=== PATIENT | female | born 1970 | race Caucasian/White ===

== ENCOUNTER 2023-10-16 13:15 | Outpatient (AMB) | payer MEDICARE, MEDICAID, SELFPAY ==
[2023-10-16 13:46] VITALS: PULSE 73; O2SAT 92; BMI 54.9
--- NOTE | 2023-10-16 13:46 | MHC.OFFVIS ---
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 The patient is a 53 year woman with a history of GREGORIA on CPAPmpresenting with dyspnea symptoms and abnormal CT scan of the chest. Apparently patient was in her usual state health until back in the summer. she was noticing that she was getting more shortness of breath while she was swimming. Therefore she went to her provider and she did have an evaluation for her underlying symptoms. There significant for her where she could her perform the activities of daily living. She did have a chest x-ray and subsequently a CT scan to follow-up the abnormal findings. She was found to have a an area on the right lower lobe of airspace disease and also other areas of ground-glass opacities. Nodular densities also the ground-glass in nature. She was treated for pneumonia and she ultimately had a repeat CT scan more recently to follow-up the resolution of the process. Clinically the patient has been doing better. His back at the pool. She is at her baseline but she is feeling little better. She did have repeat CT scan more recently we personally reviewed. It appears some of the right lower lobe airspace disease changes have improved to some degree but not completely gone. The ground-glass opacities are still present. We did talk about different etiologies. The patient does have a history of gastric sleeve and hiatal hernia. Ultimately the hiatal hernia did appear again on her most recent CT scan suggesting some recurrence. We did talk about reflux related aspiration pneumonitis that can resulting changes primarily in the right lower lobe area. She remembers 1 day which she did aspirate specially over the summer while wearing her CPAP primarily because of too much compensation. We did talk about how to maneuver that how decrease that risk. The patient also needs to be sleeping elevated. She has a positional bed but she sleeps on her side. We talked about getting risers of bricks to elevate the head of the bed. In the meantime she also needs to follow closely reflux diet. I did offer to do a barium swallow which she would like to hold off on that right now. Therefore will do additional evaluation for the findings of pneumonitis. In addition to that the patient will undergo pulmonary function studies. Since the patient is clinically doing better will continue to watch her closely. Will follow-up after she undergoes the blood work in the PFTs. [facility] Medical History (Updated 10/16/23 @ 20:44 by Jeff Saravia MD) GREGORIA on CPAP Hiatal hernia Pulmonary nodule Pneumonitis Social History (Updated 10/16/23 @ 13:56 by CORNELIUS Lazcano) Patient Tobacco Use Status: Never used Tobacco Review of Systems Const Denies fever(s) Eyes Reports no additional complaints ENT Reports nasal congestion Card Denies chest pain Resp Reports cough and Denies wheezing GI Reports dyspepsia and Reports heartburn Skin/Breast Reports system reviewed and no additional complaints, except as documented Neuro Reports no additional complaints Elias/Lymph Denies lymphadenopathy Aller/Immun Denies wheezing Physical Exam Vital Signs: Last Vital Signs Pulse 73 10/16/23 13:46 Pulse Ox 92 10/16/23 13:46 Oxygen Delivery Method Room Air 10/16/23 13:46 BMI result Body Mass Index 54.9 Const General: comfortable HEENT Head: Yes normocephalic Neck Neck: Yes supple Chest Chest palpation & inspection: normal inspection of the chest Resp Effort & Inspection: normal respiratory effort Auscultation: diminished lung sounds Cardio Heart sounds: S1 normal heart sound present and S2 normal heart sound present GI Palpation (GI): Soft to palpation Skin General skin exam: no rashes or lesions noted Extrem General: No clubbing Results Reviewed Results Reviewed: Personally reviewed CT scan from March and also more recent. Demonstrating areas of ground-glass opacities pneumonitis in the right lower lobe and also in the right mid area. Less degree in the right upper lobe. Pulmonary nodules noted area of airspace disease appears to be little better. Moderate-sized hiatal hernia. Assessment & Plan Assessment & Plan (1) Pulmonary nodule: Code(s): R91.1 - Solitary pulmonary nodule (2) Pneumonitis: Code(s): J98.4 - Other disorders of lung (3) Hiatal hernia: Code(s): K44.9 - Diaphragmatic hernia without obstruction or gangrene (4) GREGORIA on CPAP: Code(s): G47.33 - Obstructive sleep apnea (adult) (pediatric) Plan Bloodwork PFTs reflux diet consider barium swallow sleep with HOB elevated continue APAP, decrease temp/humidity Chlorhexadine MW x 14 days F/U 2-3 months Orders: Orders Immunoglobulins,IgG IgA IgM Today J98.4 - Other disorders of lung, R91.1 - Solitary pulmonary nodule Hypersensitive Pneumonitis Prf Today J98.4 - Other disorders of lung, R91.1 - Solitary pulmonary nodule, R91.8 - Other nonspecific abnormal finding of lung field Cyclic Citrullinated Peptide Today J98.4 - Other disorders of lung, R91.1 - Solitary pulmonary nodule PFT pulmonary function test 2 Months J98.4 - Other disorders of lung Complete Blood Count Auto Diff Today J98.4 - Other disorders of lung, R91.1 - Solitary pulmonary nodule Immunoglobulin G Subclasses Today J98.4 - Other disorders of lung, R91.1 - Solitary pulmonary nodule ASHLEIGH Reflex Titer and Pattern Today J98.4 - Other disorders of lung, R91.1 - Solitary pulmonary nodule Erythrocyte Sedimentation Rate Today J98.4 - Other disorders of lung, R91.1 - Solitary pulmonary nodule Sjogren's Antibodies Today J98.4 - Other disorders of lung, R91.1 - Solitary pulmonary nodule Medications: New chlorhexidine gluconate 0.12% 15 mL buccal BID 420 mL 0RF 14 days Coding Level of Care Code Est Pt Level 4 (04449) Diagnoses Pulmonary nodule R91.1 Pneumonitis J98.4 Hiatal hernia K44.9 GREGORIA on CPAP G47.33 Time Spent (min) 38
== END 2023-10-16 14:25 | disposition home or self-care (01) ==
PROVIDERS: PCP Internal Medicine; Referring Provider Internal Medicine; Visit Provider Hospitalist
DX: R91.1 Solitary pulmonary nodule (principal); J98.4 Other disorders of lung; K44.9 Diaphragmatic hernia without obstruction or gangrene; G47.33 Obstructive sleep apnea (adult) (pediatric)
CPT/HCPCS: 99214

== ENCOUNTER → 2023-10-16 13:15 | Outpatient (BNVA) | payer MEDICARE, MEDICAID, SELFPAY | PROVIDERS: PCP Internal Medicine; Referring Provider Internal Medicine; Visit Provider Hospitalist | DX: R91.1 Solitary pulmonary nodule (principal); J98.4 Other disorders of lung; G47.33 Obstructive sleep apnea (adult) (pediatric); K44.9 Diaphragmatic hernia without obstruction or gangrene | CPT/HCPCS: 99212 ==

== ENCOUNTER 2023-12-13 14:24 | Outpatient (REF) | payer MEDICARE, MEDICAID, SELFPAY ==
[2023-12-13 09:19] VITALS: PULSE 78; RESP 16; O2SAT 95
--- NOTE | 2023-12-13 16:01 | PFT_ITS ---
Indication: GREGORIA Spirometry [FEV1 to FVC 85%; FEV1 2.33 L; FVC 2.73 L. no significant response to bronchodilators noted. Maximum voluntary ventilation 69% predicted] Lung Volumes [Total lung capacity 78% predicted; expiratory reserve volume 25% predicted] Diffusion Capacity [DLCO 109% predicted] Comparison [None] Interpretation [No obstructive ventilatory defect. No significant response to bronchodilators noted. This is a [id number] decrease in the maximum voluntary ventilation which could be secondary to deconditioning although can not rule out neuromuscular conditions. The patient does have a restrictive ventilatory defect consistent with mild restrictive lung disease. In part due to an elevated BMI with a significant decrease in the expiratory reserve volume. Diffusing capacity is within normal limits. Clinical correlation warranted.] MTDD
== END 2023-12-13 14:25 | disposition home or self-care (01) ==
LOC: HO.RESP 14:24
PROVIDERS: PCP Internal Medicine; Visit Provider Hospitalist
DX: J98.4 Other disorders of lung (principal)
CPT/HCPCS: 94010; 94640; 94727; 94729

== ENCOUNTER → 2023-12-13 16:01 | Outpatient (BNV) | payer MEDICARE, MEDICAID, SELFPAY | PROVIDERS: PCP Internal Medicine; Visit Provider Hospitalist | DX: J98.4 Other disorders of lung (principal) | CPT/HCPCS: 94060; 94727; 94729 ==

== ENCOUNTER 2023-12-27 14:07 | Outpatient (AMB) | payer MEDICARE, MEDICAID, SELFPAY ==
--- NOTE | 2023-12-27 14:13 | A.OFFVIS_ITS ---
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 Apparently patient was in her usual state health until back in the summer. she was noticing that she was getting more shortness of breath while she was swimming. Therefore she went to her provider and she did have an evaluation for her underlying symptoms. There significant for her where she could her perform the activities of daily living. She did have a chest x-ray and subsequently a CT scan to follow-up the abnormal findings. She was found to have a an area on the right lower lobe of airspace disease and also other areas of ground-glass opacities. Nodular densities also the ground-glass in nature. She was treated for pneumonia and she ultimately had a repeat CT scan more recently to follow-up the resolution of the process. Clinically the patient has been doing better. His back at the pool. She is at her baseline but she is feeling little better. She did have repeat CT scan more recently we personally reviewed. It appears some of the right lower lobe airspace disease changes have improved to some degree but not completely gone. The ground-glass opacities are still present. We did talk about different etiologies. The patient does have a history of gastric sleeve and hiatal hernia. Ultimately the hiatal hernia did appear again on her most recent CT scan suggesting some recurrence. We did talk about reflux related aspiration pneumonitis that can resulting changes primarily in the right lower lobe area. She remembers 1 day which she did aspirate specially over the summer while wearing her CPAP primarily because of too much compensation. We did talk about how to maneuver that how decrease that risk. The patient also needs to be sleeping elevated. She has a positional bed but she sleeps on her side. We talked about getting risers of bricks to elevate the head of the bed. In the meantime she also needs to follow closely reflux diet. I did offer to do a barium swallow which she would like to hold off on that right now. Therefore will do additional evaluation for the findings of pneumonitis. In addition to that the patient will undergo pulmonary function studies. Since the patient is clinically doing better will continue to watch her closely. Will follow-up after she undergoes the blood work in the PFTs. 12/27/2023 the patient is here for pulmonary follow-up visit. The patient overall has been doing well. Denies any significant cough or shortness of breath. She is back to her baseline. She is starting to exercise more regularly. She is going to go back to the pulse soon. In the meantime she did have blood work done but was done at [facility] and now through [facility]. I do not have the results and we have to requesting. She also had pulmonary function studies that we personally reviewed. She does have a mild restrictive ventilatory defect likely secondary to her body habitus. Otherwise normal. The patient did have a CT scan back in the beginning of the year. She did have evidence of ground- glass opacities primarily in the right upper lobe. Will go ahead and repeat the CT scan in 6 months' time to make sure that there is resolution of the process. Otherwise patient is without any other complaints. Will follow-up in 6-[address] scan. If she has any issues prior to that she will call for an earlier assessment. COUNTS INCLUDE 234 BEDS AT THE [facility] Medical History (Updated 10/16/23 @ 20:44 by Jeff Saravia MD) GREGORIA on CPAP Hiatal hernia Pulmonary nodule Pneumonitis Social History (Updated 10/16/23 @ 13:56 by CORNELIUS Lazcano) Patient Tobacco Use Status: Never used Tobacco Review of Systems Const Denies fever(s) Eyes Reports no additional complaints ENT Reports nasal congestion Card Denies chest pain Resp Reports cough and Denies wheezing GI Reports dyspepsia and Reports heartburn Skin/Breast Reports system reviewed and no additional complaints, except as documented Neuro Reports no additional complaints Elias/Lymph Denies lymphadenopathy Aller/Immun Denies wheezing Physical Exam Vital Signs: Last Vital Signs Pulse 89 12/27/23 14:16 Pulse Ox 95 12/27/23 14:16 Oxygen Delivery Method Room Air 12/27/23 14:16 BMI result Body Mass Index 53.9 Const General: comfortable HEENT Head: Yes normocephalic Neck Neck: Yes supple Chest Chest palpation & inspection: normal inspection of the chest Resp Effort & Inspection: normal respiratory effort Auscultation: diminished lung sounds Cardio Heart sounds: S1 normal heart sound present and S2 normal heart sound present GI Palpation (GI): Soft to palpation Skin General skin exam: no rashes or lesions noted Extrem General: No clubbing Assessment & Plan Assessment & Plan (1) Pulmonary nodule: Code(s): R91.1 - Solitary pulmonary nodule Category: Medical (2) Pneumonitis: Code(s): J98.4 - Other disorders of lung Category: Medical (3) Hiatal hernia: Code(s): K44.9 - Diaphragmatic hernia without obstruction or gangrene Category: Medical (4) GREGORIA on CPAP: Code(s): G47.33 - Obstructive sleep apnea (adult) (pediatric) Category: Medical Plan reflux diet sleep with HOB elevated continue APAP CT chest 6 months Need to review bloodwork ([facility]) F/U 6-8 months Orders: Orders CT chest wo IV con 7 Months J98.4 - Other disorders of lung, R91.1 - Solitary pulmonary nodule Coding Level of Care Code Est Pt Level 4 (98417) Diagnoses Pulmonary nodule R91.1 Pneumonitis J98.4 Hiatal hernia K44.9 GREGORIA on CPAP G47.33 Time Spent (min) 17
[2023-12-27 14:16] VITALS: PULSE 89; O2SAT 95; BMI 53.9
== END 2023-12-27 14:34 | disposition home or self-care (01) ==
PROVIDERS: PCP Internal Medicine; Visit Provider Hospitalist
DX: R91.1 Solitary pulmonary nodule (principal); J98.4 Other disorders of lung; K44.9 Diaphragmatic hernia without obstruction or gangrene; G47.33 Obstructive sleep apnea (adult) (pediatric)
CPT/HCPCS: 99214

== ENCOUNTER → 2023-12-27 14:07 | Outpatient (BNVA) | payer MEDICARE, MEDICAID, SELFPAY | PROVIDERS: PCP Internal Medicine; Visit Provider Hospitalist | DX: J98.4 Other disorders of lung (principal); R91.1 Solitary pulmonary nodule; K44.9 Diaphragmatic hernia without obstruction or gangrene; G47.33 Obstructive sleep apnea (adult) (pediatric) | CPT/HCPCS: 99212 ==

== ENCOUNTER 2024-07-21 16:03 | Outpatient (REF) | payer MEDICARE, MEDICAID, SELFPAY | END 2024-07-21 16:04 | disposition home or self-care (01) | LOC: HO.CT 16:03 | PROVIDERS: PCP Internal Medicine; Visit Provider Hospitalist | DX: J98.4 Other disorders of lung (principal); R91.1 Solitary pulmonary nodule | CPT/HCPCS: 71250 ==

== ENCOUNTER → 2024-07-21 16:05 | Outpatient (BNV) | payer MEDICARE, MEDICAID, SELFPAY | PROVIDERS: PCP Internal Medicine; Visit Provider Radiology Diagnostic Radiology | DX: R91.1 Solitary pulmonary nodule (principal); J98.4 Other disorders of lung | CPT/HCPCS: 71250 ==

== ENCOUNTER → 2024-09-23 13:46 | Outpatient (AMB) | payer MEDICARE, MEDICAID, SELFPAY ==
--- NOTE | 2024-09-23 13:50 | MHC.OFFVIS ---
Vital Signs 09/23/24 13:51 Height 5 ft 5 in BMI Reason not done Patient refused/unable BP 128/74 Blood Pressure Location Lt radial Position Sitting Pulse 76 Pulse Source Pulse Oximeter Pulse Oximetry (%) 98 Oxygen Delivery Method Room Air Intake Visit Reasons: abnormal ct Allergies gabapentin Adverse Reaction (Severe, Verified 09/23/24 13:54) Blurry Vision metformin Adverse Reaction (Severe, Verified 09/23/24 13:54) Unknown HPI Comments Details: The patient is a 54 year woman with a history of GREGORIA on CPAPmpresenting with dyspnea symptoms and abnormal CT scan of the chest. Apparently patient was in her usual state health until back in the summer. she was noticing that she was getting more shortness of breath while she was swimming. Therefore she went to her provider and she did have an evaluation for her underlying symptoms. There significant for her where she could her perform the activities of daily living. She did have a chest x-ray and subsequently a CT scan to follow-up the abnormal findings. She was found to have a an area on the right lower lobe of airspace disease and also other areas of ground-glass opacities. Nodular densities also the ground-glass in nature. She was treated for pneumonia and she ultimately had a repeat CT scan more recently to follow-up the resolution of the process. Clinically the patient has been doing better. His back at the pool. She is at her baseline but she is feeling little better. She did have repeat CT scan more recently we personally reviewed. It appears some of the right lower lobe airspace disease changes have improved to some degree but not completely gone. The ground-glass opacities are still present. We did talk about different etiologies. The patient does have a history of gastric sleeve and hiatal hernia. Ultimately the hiatal hernia did appear again on her most recent CT scan suggesting some recurrence. We did talk about reflux related aspiration pneumonitis that can resulting changes primarily in the right lower lobe area. She remembers 1 day which she did aspirate specially over the summer while wearing her CPAP primarily because of too much compensation. We did talk about how to maneuver that how decrease that risk. The patient also needs to be sleeping elevated. She has a positional bed but she sleeps on her side. We talked about getting risers of bricks to elevate the head of the bed. In the meantime she also needs to follow closely reflux diet. I did offer to do a barium swallow which she would like to hold off on that right now. Therefore will do additional evaluation for the findings of pneumonitis. In addition to that the patient will undergo pulmonary function studies. Since the patient is clinically doing better will continue to watch her closely. Will follow-up after she undergoes the blood work in the PFTs. 12/27/2023 the patient is here for pulmonary follow-up visit. The patient overall has been doing well. Denies any significant cough or shortness of breath. She is back to her baseline. She is starting to exercise more regularly. She is going to go back to the pulse soon. In the meantime she did have blood work done but was done at [facility] and now through [facility]. I do not have the results and we have to requesting. She also had pulmonary function studies that we personally reviewed. She does have a mild restrictive ventilatory defect likely secondary to her body habitus. Otherwise normal. The patient did have a CT scan back in the beginning of the year. She did have evidence of ground-glass opacities primarily in the right upper lobe. Will go ahead and repeat the CT scan in 6 months' time to make sure that there is resolution of the process. Otherwise patient is without any other complaints. Will follow-up in 6-[address] scan. If she has any issues prior to that she will call for an earlier assessment. 09/23/2024 the patient is here for a pulmonary follow-up visit. The patient overall is doing well she is responding well to the respiratory therapy. Asthma symptoms have been stable. She did have a CT scan of the chest sometime in 08/08/2024 which I personally reviewed with her. I also compared to her previous CT scan from 2022. It appears that she has a 2 cm upper mediastinal lymph node. It was their present on her CT scan from 06/11 and still present now. Therefore, will continue to follow this abnormal finding. The patient does not have any unintentional weight loss. She has weight loss but is because he has been trying to do so. She has not had any issues with poor appetite or night sweats or any other constitutional symptoms that will warrant any further concerns. If she does develop any constitutional symptoms the patient will call the office for an earlier evaluation otherwise will just plan to repeat the CT scan in a year's time. She will continue with the current respiratory therapy and sleep therapy. She has any issues prior to her next visit she will call for an earlier assessment. [facility] Medical History (Updated 09/23/24 @ 21:07 by Jeff Saravia MD) Lymphadenopathy, mediastinal GREGORIA on CPAP Hiatal hernia Pulmonary nodule Pneumonitis Social History Patient Tobacco Use Status: Never used Tobacco Review of Systems Const Denies fever(s), Denies night sweats, Denies poor appetite and Reports weight loss Eyes Reports no additional complaints ENT Reports nasal congestion Card Denies chest pain Resp Reports cough and Denies wheezing GI Reports dyspepsia and Reports heartburn Skin/Breast Reports system reviewed and no additional complaints, except as documented Neuro Reports no additional complaints Elias/Lymph Denies lymphadenopathy Aller/Immun Denies wheezing Physical Exam Vital Signs: Last Vital Signs Pulse 76 09/23/24 13:51 BP 128/74 09/23/24 13:51 Pulse Ox 98 09/23/24 13:51 Oxygen Delivery Method Room Air 09/23/24 13:51 Const General: comfortable HEENT Head: Yes normocephalic Neck Neck: Yes supple Chest Chest palpation & inspection: normal inspection of the chest Resp Effort & Inspection: normal respiratory effort Auscultation: diminished lung sounds Cardio Heart sounds: S1 normal heart sound present and S2 normal heart sound present GI Palpation (GI): Soft to palpation Skin General skin exam: no rashes or lesions noted Extrem General: No clubbing Results Reviewed Results Reviewed: [address] [address] [address] Scan Report Signed Patient: Margi Ocasio MR#: [id number] : 1970 Acct:[id number] Age/Sex: 54 / F ADM Date: 07/21/24 Loc: HO.CT Attending Dr: Jeff Saravia MD Ordering Physician: Jeff Saravia MD Date of Service: 07/21/24 Procedure(s): CT chest wo IV con Accession Number(s): [id number] cc: Faustina Aguila MD; Jeff Saravia MD~ Report Number: [id number]: Total DLP = 594.00 mGy-cm EXAMINATION: CT CHEST WITHOUT IV CONTRAST INDICATION: J98.4 - Other disorders of lung. Pulmonary nodule. COMPARISON: There are no prior studies available for comparison. TECHNIQUE: Helical CT scan of the chest was performed without intravenous contrast. Coronal and sagittal reformatted images were generated and reviewed. This CT exam was performed with one or more of the following dose reduction techniques: automated exposure control, adjustment of the mA and/or kV according to patient size, use of iterative reconstruction technique. DLP: 594 mGy-cm CHEST: THYROID: The thyroid is unremarkable. LUNGS:There are punctate nodules in the right upper lobe (series 5, image 139), and in the left upper lobe (series 5, image 189). No additional pulmonary nodules are identified. MEDIASTINUM: There is a 2.2 cm superior mediastinal node on the right. SVITLANA: Evaluation of the hilar regions is limited by lack of intravenous contrast material. CARDIOVASCULATURE: The heart is normal in size. There is no pericardial effusion. The thoracic aorta is normal in caliber. DEGREE OF CORONARY CALCIFICATION: none PLEURA: There is no pleural effusion. No pneumothorax. MAIN AIRWAYS: The mainstem bronchi and proximal branches are patent. AXILLA: There is no axillary lymphadenopathy. BONES AND SOFT TISSUES: Unremarkable UPPER ABDOMEN: The visualized portions of the liver, spleen, and adrenals have an unremarkable appearance. There is a small to moderate hiatal hernia. Postoperative changes are noted involving the stomach. CT/CT chest wo IV con IMPRESSION: 1. Punctate bilateral upper lobe pulmonary nodules. Comparison with prior outside studies is recommended. 2. 2.2 cm superior mediastinal lymph node. Please note that while this study was performed on 07/21/2024, it is only now submitted for interpretation, on 09/05/2024. Electronically signed by: Can Murillo MD 09/05/2024 02:24 PM [facility] Dictated By: Can Murillo MD Signed By: <Electronically signed by Can Murillo MD in OV> 09/05/24 1424 DD/ 1639 TD/TT: 07/21/24 1649 Manager Small Business: Assessment & Plan Assessment & Plan (1) Pulmonary nodule: Code(s): R91.1 - Solitary pulmonary nodule Category: Medical (2) Pneumonitis: Comment: resolved Code(s): J98.4 - Other disorders of lung Category: Medical (3) Hiatal hernia: Code(s): K44.9 - Diaphragmatic hernia without obstruction or gangrene Category: Medical (4) GREGORIA on CPAP: Code(s): G47.33 - Obstructive sleep apnea (adult) (pediatric) Category: Medical (5) Lymphadenopathy, mediastinal: Code(s): R59.0 - Localized enlarged lymph nodes Category: Medical Plan reflux diet sleep with HOB elevated continue APAP CT chest 12 months Need to review bloodwork ([facility]) F/U 12 months Orders: Orders CT chest wo IV con 1 Year R59.0 - Localized enlarged lymph nodes, R91.1 - Solitary pulmonary nodule Coding Level of Care Code Est Pt Level 4 (97941) Diagnoses Pulmonary nodule R91.1 Pneumonitis J98.4 Hiatal hernia K44.9 GREGORIA on CPAP G47.33 Lymphadenopathy, mediastinal R59.0 Time Spent (min) 17
[2024-09-23 13:51] VITALS: BP 128/74; PULSE 76; O2SAT 98
--- OUTSIDE RECORDS SUMMARY | 2024-09-23 13:55 | XMS_ITS | Clinical Summary ---
Author Organization [facility] Address [address] [place] [address] Care Team Providers Care Keypunch Operators Supervisor Name Role Phone Faustina Aguila MD Primary Care Provider Allergies Active Allergy Reactions Criticality Noted Date Comments Gabapentin 10/18/2017 Medications Medication Sig Dispensed Refills Start Date End Date Status insulin aspart (NovoLOG) injection 100 units/mL Inject under the skin 3 (three) times a day with meals. 0 Active Levothyroxine Sodium (SYNTHROID PO) Take 0.2 mg by mouth daily. 0 Active metFORMIN (GLUCOPHAGE) tablet 1000 mg Take 1,000 mg by mouth 2 (two) times a day with meals. 0 Active Canagliflozin (INVOKANA) 300 MG TABS Take by mouth. 0 Active liraglutide (VICTOZA) injection 18 mg/3 mL Inject under the skin. 0 Active pregabalin (LYRICA) capsule 150 mg Take 150 mg by mouth every morning. 0 Active pregabalin (LYRICA) 300 MG capsule Take 300 mg by mouth every night at bedtime. 0 Active cyclobenzaprine (FLEXERIL) 10 MG tablet Take 10 mg by mouth 3 (three) times a day as needed for muscle spasms. 0 Active oxyCODONE (ROXICODONE) 15 MG immediate release tablet Take 15 mg by mouth every 4 (four) hours as needed for pain. 0 Active Levocetirizine Dihydrochloride (XYZAL PO) Take 10 mg by mouth daily. 0 Active Bepotastine Besilate (BEPREVE OP) Apply to eye. 0 Active furosemide (LASIX) 40 MG tablet Take 40 mg by mouth daily. 0 Active simvastatin (ZOCOR) tablet 20 mg Take 20 mg by mouth every night at bedtime. 0 Active losartan (COZAAR) tablet 25 mg Take 25 mg by mouth daily. 0 Active clotrimazole (LOTRIMIN) 1 % cream Apply topically 2 (two) times a day. 0 Active SUMAtriptan Succinate (IMITREX PO) Take 100 mg by mouth as needed. 0 Active Esomeprazole Magnesium (NEXIUM PO) Take 40 mg by mouth 2 (two) times a day. 0 Active Lurasidone HCl (LATUDA) 120 MG TABS Take by mouth. 0 Active BuPROPion HCl (WELLBUTRIN PO) Take 450 mg by mouth daily. 0 Active Methylphenidate HCl (RITALIN PO) Take 20 mg by mouth 2 (two) times a day. 0 Active Ramelteon (ROZEREM PO) Take by mouth. 0 Active betamethasone dipropionate (DIPROSONE) 0.05 % cream Apply topically 2 (two) times a day. 0 Active vitamin C (ASCORBIC ACID) 250 MG tablet Take 250 mg by mouth daily. 0 Active linaclotide (LINZESS) 145 MCG CAPS Take 145 mcg by mouth every morning before breakfast. 0 Active B Complex Vitamins (B COMPLEX 1 PO) Take by mouth. 0 Active IRON, FERROUS SULFATE, PO Take by mouth. 0 Active rOPINIRole (REQUIP) 1 MG tablet Take 1 mg by mouth 3 (three) times a day. 0 Active Empagliflozin (Jardiance) 25 MG TABS Take by mouth. 0 Active Semaglutide, 1 MG/DOSE, (Ozempic, 1 MG/DOSE,) 2 MG/1.5ML SOPN Inject under the skin. 0 Active rosuvastatin (CRESTOR) tablet 10 mg Take 10 mg by mouth daily. 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 10/19/2017 Type 2 diabetes mellitus wit h hyperosmolarity without coma, with long-term current use of insulin 10/19/2017 Acquired hypothyroidism 10/19/2017 Spinal stenosis 10/19/2017 Primary osteoarthritis involving multiple joints 10/19/2017 Gastroesophageal reflux disease 10/19/2017 Family History Medical History Relation Name Comments Diabetes Brother Bebeto Diabetes Father Can Lymphoma Maternal Cousin Tatiana Rectal cancer Maternal Grandfather Breast cancer Maternal Grandmother Diabetes Mother Glenna Stroke Mother Glenna Relation Name Status Comments Brother Bebeto Alive Father Can Alive Maternal Cousin Tatiana Alive non hodgkin Maternal Grandfather Maternal Grandmother Mother Glenna Alive Social History Tobacco Use Types Packs/Day Years Used Date Smoking Tobacco: Never Smokeless Tobacco: Never Alcohol Use Standard Drinks/Week Comments No 0 (1 standard drink = 0.6 oz pur e alcohol) Sex and Gender Information Value Date Recorded Sex Assigned at Not on file Gender Identity Not on file Sexual Orientation Not on file Last Filed Vital Signs Vital Sign Reading Time Taken Comments Blood Pressure 109/49 03/16/2021 2:14 PM EDT Pulse 82 03/16/2021 2:14 PM EDT Temperature 36.9 ??C (98.4 ??F) 03/16/2021 2:14 PM ED T Respiratory Rate - - Oxygen Saturation 98% 03/16/2021 2:14 PM EDT Inhaled Oxygen Concentration - - Weight 153.8 kg (339 lb) 03/16/2021 2:14 PM EDT Height 165.1 cm (5' 5 ) 03/16/2021 2:14 PM EDT Body Mass Index 56.41 03/16/2021 2:14 PM EDT Plan of Treatment Health Maintenance Due Date Last Done Comments Hepatitis B Vaccines (1 of 3 - 3-dose series) 1971 Hepatitis C Screening 1971 COVID-19 Vaccine (#1) 01/12/1976 Pneumococcal Vaccine (1 of 2 - PCV) 1977 Depression Screening 1983 Preventative Health Evaluation 1989 DTap / Tdap / Td (1 - Tdap) 1990 Shingrix-Zoster Vaccine (1 of 2) 1990 Cervical Cancer Screening (P ap Smear) 01/12/1992 Colon Cancer Screening (Colonoscopy) 01/12/2016 Breast Cancer Screening (Mammogram) 2021 Influenza Vaccine (#1) 2024 RSV Ped < 20 months Aged Out No longe r eligible based on patient's age to complete this topic Care Teams Keypunch Operators Supervisor Relationship Specialty Start Date End Date Faustina Aguila MD [address] [place] [address] PCP - General Internal Medicine 03/16/21
--- OUTSIDE RECORDS SUMMARY | 2024-09-23 13:55 | XMS_ITS | Clinical Summary ---
Author Organization [facility] Address [address] [place] [address] Phone Care Team Providers Care Prop Maker Name Role Phone Faustina Aguila MD Primary Care Provider Allergies Active Allergy Reactions Criticality Noted Date Comments Gabapentin 10/18/2017 Metformin 08/02/2023 Medication induced Hepatitis A Medications Medication Sig Dispensed Refills Start Date End Date Status sucralfate (CARAFATE) 1 gram tabletIndications:Gas troesophageal reflux disease without esophagitis Take 1 tablet (1 g total) by mouth 3 (three) times a day. Take 1 hour before meals and at bedtime 270 each 07/28/2024 Active pantoprazole (PROTONIX) 40 mg EC tabletIndications:Gas troesophageal reflux disease without esophagitis Take 1 tablet (40 mg total) by mouth 2 (two) times a day. Do not crush, chew, or split. 60 each 5 08/28/2024 5 Active levothyroxine (SYNTHROID, LEVOTHROID) 200 mcg tablet Take 1 Tablet by mouth daily. Every 6 days Active empagliflozin (Jardiance) 25 mg tablet Take 1 tablet (25 mg total) by mouth 1 (one) time each day. Active ropinirole HCl (ROPINIROLE ORAL) Take by mouth. Take 2 1-3 hours before bedtime Active tiZANidine (ZANAFLEX) 4 mg tablet Take 1 tablet (4 mg total) by mouth 3 (three) times a day. Active celecoxib (CeleBREX) 200 mg capsule Take 1 capsule (200 mg total) by mouth 2 (two) times a day. Active oxyCODONE (OxyCONTIN) 15 mg 12 hr abuse-deterrent tablet Take 1 tablet (15 mg total) by mouth every 12 (twelve) hours. Max Daily Amount: 30 mg Active levocetirizine dihydrochloride (XYZAL ORAL) Take 10 mg by mouth 1 (one) time each day. Active losartan (COZAAR) 25 mg tablet Take 1 tablet (25 mg total) by mouth 1 (one) time each day. Active rosuvastatin (CRESTOR) 5 mg tablet Take 1 tablet (5 mg total) by mouth 1 (one) time each day. Active oxymetazoline HCl (OXYMETAZOLINE NASL) Administer into affected nostril(s). Active famotidine (PEPCID) 20 mg tablet Take 1 tablet (20 mg total) by mouth as needed. Active ondansetron HCl (ZOFRAN ORAL) Take by mouth. Every 4 hours prn Active plecanatide (Trulance) 3 mg tablet Take by mouth 1 (one) time each day. Active lurasidone (Latuda) 120 mg tablet Take 1 tablet (120 mg total) by mouth at bedtime. Active ramelteon (ROZEREM ORAL) Take 2 tablets by mouth at bedtime. Take 2 Tablets by mouth at bedtime. ROZERM Active bupropion HCl (WELLBUTRIN XL ORAL) Take 450 mg by mouth 1 (one) time each day. Active dupilumab (Dupixent Pen) 300 mg/2 mL pen Inject into the skin once a week. On Mondays Active halobetasol (ULTRAVATE) 0.05 % cream Apply topically 2 (two) times a day. Active ciclopirox (LOPROX) 0.77 % gel Apply topically. Active cholecalciferol (VITAMIN D-3) 125 mcg (5,000 unit) capsule Take 1 capsule (5,000 Units total) by mouth 1 (one) time each day. 02/21/2018 Active esomeprazole magnesium (NEXIUM ORAL) Take 40 mg by mouth 2 (two) times a day. Active insulin aspart (NovoLOG U-100 Insulin aspart) 100 unit/mL injection Inject 100 Units under the skin 3 (three) times a day before meals. Active multivitamin (MULTIPLE VITAMINS ORAL) Take 10 mg by mouth daily. Bariatric Active levothyroxine sodium (SYNTHROID ORAL) Take 100 mcg by mouth 1 (one) time each day. Active linaCLOtide (LINZESS) 145 mcg capsule Take 1,000 capsules (145,000 mcg total) by mouth 1 (one) time each day. Active oxyCODONE (ROXICODONE) 15 mg immediate release tablet Take 0.5 Tablets by mouth every 4 hours as needed. Take 1/2 tab every 4 hours orn for break through pain Active pregabalin (LYRICA) 300 mg capsule Take by mouth. Take 150 mg in the am and 300 mg in the pm Active methylphenidate (RITALIN) 20 mg tablet Take 1 tablet (20 mg total) by mouth 2 (two) times a day. Max Daily Amount: 40 mg Active dicyclomine (BENTYL) 20 mg tabletIndications:Irr itable bowel syndrome, unspecified type Take 1 tablet (20 mg total) by mouth 4 (four) times a day. 360 each 3 09/15/2024 6 Active pantoprazole (PROTONIX) 40 mg EC tabletIndications:Gas troesophageal reflux disease without esophagitis Take 1 tablet (40 mg total) by mouth 2 (two) times a day. Do not crush, chew, or split. 60 each 5 08/06/2024 5 Discontinue d(Reorder) dicyclomine (BENTYL) 20 mg tablet Take 1 tablet (20 mg total) by mouth 4 (four) times a day. 5 Discontinue d(Reorder) Active Problems Problem Noted Date Diagnosed Date ADD (attention deficit disorder) 09/11/2024 Depression 09/11/2024 Type 2 diabetes mellitus without complication Overview (09/11/2024): 08/2017 Insulin pump Hypothyroidism 09/11/2024 Chest pain 08/02/2023 Overview (09/11/2024): Last Assessment & Plan: Due to her obesity, stress test will be very difficult and probably will generate significant amount of artifact. Her chest pain is atypical but concerning due to her risk factors. Most recent CT scan showed mild coronary artery calcification. I would like to arrange for coronary artery CTA to assess her coronary anatomy. 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; B-cell, [facility] Oncology GREGORIA on CPAP 04/10/2018 Vitamin D deficiency 02/21/2018 Encounters Date Type Department Care Team Description 08/28/2024 Telephone Gastroenterology - [address] [facility] [address] [place] [phone] Brent [place], [place] 07/25/2024 3:55 PM EST - 07/25/2024 11:59 PM EST Hospital Encounter [facility] MRI [address] [place] [id number] Pain Discharge Disposition: Home or Self Care from Last 3 Months Surgical History Surgery Date Site/Laterality Comments BARIATRIC SURGERY 08/2017 PROCEDURE: MD LAPS GSTRC RSTRICTIV PX LONGITUDINAL GASTRECTOMY; COMMENT: sleeve w/hiatal hernai repair; b-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 CARPAL TUNNEL RELEASE Bilateral PROCEDURE: HISTORICAL CARPAL TUNNEL REL SHOULDER SURGERY Left PROCEDURE: HISTORICAL SHOULDER SURGERY KNEE SURGERY Bilateral PROCEDURE: HISTORICAL KNEE SURGERY; COMMENT: arthroscopy OTHER SURGICAL HISTORY PROCEDURE: ARTHROSCOPY PROCEDURE NEC Medical History Medical History Date Comments Depression DX:Depression ADD (attention deficit disorder) DX:ADD (attention deficit disorder) Hypothyroidism DX:Hypothyroidis m Non Hodgkin's lymphoma (CMS/HCC) 04/10/2018 DX:Non Hodgkin's lymphoma (HCC); COMMENT: 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; B-cell, [facility] Oncology Vitamin D deficiency 02/21/2018 DX:Vitamin D deficiency Type 2 diabetes mellitus wit hout complication (CMS/HCC) DX:Type 2 diabetes mellitus without complication (HCC); COMMENT: 08/2017 Insulin pump DDD (degenerative disc disea se), cervical 04/10/2018 DX:DDD (degenerative disc di sease), cervical; COMMENT: Spinal stenosis History of bariatric surgery 04/10/2018 DX: History of bariatric surgery; COMMENT: 08/2017 sleeve GREGORIA on CPAP 04/10/2018 DX:GREGORIA on CPAP Bipolar affective disorder ([facility]) 04/10/2018 DX:Bipolar affective disorder ([facility]) Morbid obesity with BMI of 5 0.0-59.9, adult ([facility]) 02/21/2018 DX:Morbid obesity with BMI o f 50.0-59.9, adult ([facility]) Hyperlipidemia 04/10/2018 DX:Hyperlipidemi a Migraine headache 04/10/2018 DX:Migraine he adache Allergies DX:Allergies Anxiety DX:Anxiety Back pain DX:Back pain Cataracts, bilateral DX:Cataract s, bilateral Diabetes mellitus, type 2 ([facility]) DX:Diabetes mellitus, type 2 ([facility]) Eating disorder DX:Eating disord er GERD (gastroesophageal reflux disease) DX:GERD (gastroesophageal reflux disease) Gastroparesis DX:Gastroparesis HTN (hypertension) DX:HTN (hyper tension) IBS (irritable bowel syndrome) D X:IBS (irritable bowel syndrome) MALT lymphoma DX:MALT lymphoma Spinal stenosis DX:Spinal stenos is Tardive dyskinesia DX:Tardive dy skinesia Family History Medical History Relation Name Comments Diabetes Father hypertension Lung cancer Maternal Grandfather Breast cancer Maternal Grandmother Diabetes Mother hypertension, s troke Relation Name Status Comments Father Maternal Grandfather Maternal Grandmother Mother Social History Tobacco Use Types Packs/Day Years Used Date Smoking Tobacco: Former Smokeless Tobacco: Never Alcohol Use Standard Drinks/Week Comments Not Currently 0 (1 standard drink = 0.6 oz pur e alcohol) Sex and Gender Information Value Date Recorded Sex Assigned at Not on file Gender Identity Not on file Sexual Orientation Lesbian or Romero 06/26/2024 4: 55 PM EST Job Start Date Occupation Industry Not on file Not on file Not on file Obstetrics History Last Filed Vital Signs Vital Sign Reading Time Taken Comments Blood Pressure 138/84 08/02/2023 10:17 AM EST Sitting L Arm Pulse 72 08/02/2023 10:17 AM EST Temperature - - Respiratory Rate - - Oxygen Saturation - - Inhaled Oxygen Concentration - - Weight 159 kg (350 lb 9.6 oz) 10:17 AM EST Height 165.1 cm (5' 5 ) 08/02/2023 10:1 7 AM EST Body Mass Index 58.34 08/02/2023 10:17 AM EST Plan of Treatment Upcoming Encounters Date Type Department Care Team (Late st Contact Info) Description 11/04/2024 3:20 PM EDT Office Visit Gastroenterology - [address] [place] [phone] Breonna Hickey MD [address] [place] [address] Health Maintenance Due Date Last Done Comments Breast Cancer Screening 1971 Diabetes: Annual Foot Exam 1981 Diabetes: Annual Retina Eye Exam 1981 Hepatitis B Vaccines (1 of 3 - 19+ 3-dose series) 1990 Cervical Cancer Screening: Pap Smear 01/12/1992 Diabetes: Annual GFR (Glomerular Filtration Rate) 03/07/2019 03/07/2018 Cholesterol Screening (Lipid Panel) 07/19/2022 Colorectal Cancer Screening: Colonoscopy 07/19/2022 Depression Screening 07/19/2022 HIV Screening 07/19/2022 Hepatitis C Screening 07/19/2022 Social Influencers of Health Screening 07/19/2022 Medicare Annual Wellness Visit 08/09/2023 08/09/2022 Hypertension/CHF/CAD Annual BMP Blood Test 10/05/2023 03/07/2018 Diabetes: Blood Sugar Control Test (HGBA1C) 12/13/2023 06/13/2023 Diabetes: Annual Urine Albumin-Creatinine Ratio (uACR) 06/13/2024 06/13/2023 DTaP,Tdap,and Td Vaccines (2 - Td or Tdap) 02/11/2033 02/11/2023 Zoster Vaccines Completed 08/06/2021, 05/31/2021 Pneumococcal Vaccine: Pediatrics (0 to 5 Years) and At-Risk Patients (6 to 64 Years) Completed 07/30/2023, 03/26/2020 COVID-19 Vaccine Completed 05/15/2024, , 05/03/2022, Additional history exists Influenza Vaccine Completed 05/15/2024, , 05/03/2022, Additional history exists HIB Vaccines Aged Out No longer eligi ble based on patient's age to complete this topic HPV Vaccines Aged Out No longer eligi ble based on patient's age to complete this topic Hepatitis A Vaccines Aged Out No long er eligible based on patient's age to complete this topic IPV Vaccines Aged Out No longer eligi ble based on patient's age to complete this topic MMR Vaccines Aged Out No longer eligi ble based on patient's age to complete this topic Meningococcal ACWY Vaccine Aged Out N o longer eligible based on patient's age to complete this topic RSV Immunization Patients Under 20 months Aged Out No longer eligible based on patient's age to complete this topic Varicella Vaccines Aged Out No longer eligible based on patient's age to complete this topic Procedures Procedure Name Priority Date/Time Associated Diagnosis Comments MR LUMBAR SPINE WO CONTRAST Routine 07/25/2024 4:33 PM EST Pain from Last 3 Months Results * MR Lumbar Spine wo Contrast (07/25/2024 4:33 PM EST) Anatomical Region Laterality Modality L-spine, Spine Magnetic Resonan ce 07/27/2024 10:4 2 PM EST Impressions 07/28/2024 10:28 AM EST Degenerative changes of the lumbar spine, most prominent at L4-5. Transitional anatomy at the lumbosacral junction with a partially sacralized L5 vertebral body. -------- FINAL REPORT -------- Dictated By: Carl Pratt Dictated Date: 07/27/2024 22:42 ET Assigned Physician: Carl Pratt Reviewed and Electronically Signed By: Carl Pratt Signed Date: 07/28/2024 10:28 ET Workstation ID: [id number] Transcribed By: Self Edit Transcribed Date: 07/27/2024 22:43 ET Narrative 07/28/2024 10:28 AM EST MRI of the lumbar spine, 07/27/2024. TECHNIQUE: Multiplanar multisequence MRI of the lumbar spine without intravenous contrast administration. HISTORY: Low back pain. COMPARISON: 02/01/2022. FINDINGS: There is asymmetric left greater than right atrophy of the sacral paraspinous musculature. ??No other paraspinous soft tissue findings. Normal alignment. ??No compression deformity. ??No concerning marrow infiltrative lesion. ??Small focus of Modic endplate signal along the anterior inferior L4 endplate. ??Transitional anatomy with a partially sacralized appearance of the L5 vertebral body. Normal position of the conus at T12-L1. Lumbar disc levels: L1-2: Mild disc space height loss and endplate irregularity. ??Small anterior endplate osteophytes. ??Minimal symmetric disc osteophyte complex. ??Slight widening of the facet joints suggesting mild hypermobility. ??No spinal or foraminal stenosis. L2-3: Minimal endplate irregularity and minimal anterior endplate osteophytes. ??Slight widening of the facet joints suggesting mild hypermobility. ??No spinal or foraminal stenosis. L3-4: Mild widening of the facet joints and mild left-sided ligamentum flavum hypertrophy, suggesting facet hypermobility. ??No significant spinal or foraminal stenosis. L4-5: Minimal endplate irregularity and minimal anterior endplate osteophytes. ??Small symmetric disc bulge. ??Significant widening of the left facet joint suggesting facet joint hypermobility, with moderate left and mild right facet arthropathy. ??Mild bilateral foraminal stenosis. ??Mild spinal stenosis. L5-S1: Mild bilateral facet arthropathy. ??No spinal or foraminal stenosis. Procedure Note Carl Pratt MD - 07/28/2024 MRI of the lumbar spine, 07/27/2024. TECHNIQUE: Multiplanar multisequence MRI of the lumbar spine withoutintravenous contrast administration. HISTORY: Low back pain. COMPARISON: 02/01/2022. FINDINGS: There is asymmetric left greater than right atrophy of the sacralparaspinous musculature. No other paraspinous soft tissue findings. Normal alignment. No compression deformity. No concerning marrowinfiltrative lesion. Small focus of Modic endplate signal along theanterior inferior L4 endplate. Transitional anatomy with a partiallysacralized appearance of the L5 vertebral body. Normal position of the conus at T12-L1. Lumbar disc levels: L1-2: Mild disc space height loss and endplate irregularity. Smallanterior endplate osteophytes. Minimal symmetric disc osteophyte complex.Slight widening of the facet joints suggesting mild hypermobility. Nospinal or foraminal stenosis. L2-3: Minimal endplate irregularity and minimal anterior endplateosteophytes. Slight widening of the facet joints suggesting mildhypermobility. No spinal or foraminal stenosis. L3-4: Mild widening of the facet joints and mild left-sided ligamentumflavum hypertrophy, suggesting facet hypermobility. No significant spinalor foraminal stenosis. L4-5: Minimal endplate irregularity and minimal anterior endplateosteophytes. Small symmetric disc bulge. Significant widening of theleft facet joint suggesting facet joint hypermobility, with moderate leftand mild right facet arthropathy. Mild bilateral foraminal stenosis.Mild spinal stenosis. L5-S1: Mild bilateral facet arthropathy. No spinal or foraminalstenosis. IMPRESSION: Degenerative changes of the lumbar spine, most prominent at L4-5. Transitional anatomy at the lumbosacral junction with a partiallysacralized L5 vertebral body. -------- FINAL REPORT -------- Dictated By: Carl Pratt Dictated Date: 07/27/2024 22:42 ET Assigned Physician: Carl Pratt Reviewed and Electronically Signed By: Carl Pratt Signed Date: 07/28/2024 10:28 ET Workstation ID: [id number] Transcribed By: Self Edit Transcribed Date: 07/27/2024 22:43 ET Juan Pierre DO IMG MRI PROCEDURES from Last 3 Months Care Teams Prop Maker Relationship Specialty Start Date End Date Faustina Aguila MD [address] [place] [address] PCP - General Internal Medicine 09/10/24
--- OUTSIDE RECORDS SUMMARY | 2024-09-23 13:55 | XMS_ITS | Encounter Summary ---
Author Organization [facility] Address [address] [place] [address] Care Team Providers Care Storeroom Clerk Name Role Phone Unavailable Primary Care Provider Unavailabl e Encounter Details Date Type Department Care Team (Late Contact Info) Description 08/28/2024 Telephone Gastroenterology - [address] [facility] [address] [phone] Lizbeth Kennedy MA Social History Tobacco Use Types Packs/Day Years [...] file Not on file Not on file documented as of this encounter Ordered Prescriptions Prescription Sig Dispensed Refills Start Date End Da te pantoprazole (PROTONIX) 40 mg EC tabletIndications:Gastroes ophageal reflux disease without esophagitis Take 1 tablet (40 mg total) by mouth 2 (two) times a day. Do not crush, chew, or split. 60 each 5 08/28/2024 02/24/2025 documented in this encounter Progress Notes * Lizbeth Kennedy MA - 08/28/2024 10:46 AM EST RX REFILL PANTOPRAZOLE documented in this encounter Plan of Treatment Upcoming Encounters Date Type Department Care Team (Late Contact Info) Description 11/04/2024 3:20 PM EDT Office Visit Gastroenterology - [address] [facility] [address] [place] [phone] Breonna Hickey MD [address] [facility] [address] [place] [address] documented as of this encounter Visit Diagnoses Diagnosis Gastroesophageal reflux disease without esophagitis Esophageal reflux documented in this encounter Discontinued Medications Medication Sig Discontinue Reason Start Date End Da te pantoprazole (PROTONIX) 40 mg EC tabletIndications:Gastroe sophageal reflux disease without esophagitis Take 1 tablet (40 mg total) by mouth 2 (two) times a day. Do not crush, chew, or split. Reorder 08/06/2024 08/28/2024 documented as of this encounter
== END ==
PROVIDERS: PCP Internal Medicine; Visit Provider Hospitalist
DX: R91.1 Solitary pulmonary nodule (principal); J98.4 Other disorders of lung; K44.9 Diaphragmatic hernia without obstruction or gangrene; G47.33 Obstructive sleep apnea (adult) (pediatric); R59.0 Localized enlarged lymph nodes
CPT/HCPCS: 99214

== ENCOUNTER → 2024-09-23 13:46 | Outpatient (BNVA) | payer MEDICARE, MEDICAID, SELFPAY | PROVIDERS: PCP Internal Medicine; Visit Provider Hospitalist | DX: J98.4 Other disorders of lung (principal); G47.33 Obstructive sleep apnea (adult) (pediatric); R91.1 Solitary pulmonary nodule; K44.9 Diaphragmatic hernia without obstruction or gangrene; R59.0 Localized enlarged lymph nodes; Z99.89 Dependence on other enabling machines and devices | CPT/HCPCS: 99212 ==

== ENCOUNTER 2024-10-18 09:30 | Emergency (ER) | payer MEDICARE, MEDICAID, SELFPAY ==
[2024-10-18 10:18] VITALS: BP 121/64; PULSE 97; RESP 18; TEMP 36.8; O2SAT 94; BMI 54.4
[2024-10-18 11:54] LABS: Influenza A PCR NEGATIVE (Negative); Influenza B PCR NEGATIVE (Negative); Resp Syncy Virus RNA Qual PCR NEGATIVE (Negative); SARS COV2 PCR INHOUSE NEGATIVE (Negative)
--- NOTE | 2024-10-18 12:19 | ED_ITS ---
HPI - General Adult General Chief complaint: General Medical Stated complaint: eczema Time Seen by Provider: 10/18/24 12:09 Source: patient, RN notes reviewed and old records reviewed Mode of arrival: ambulatory History of Present Illness ED Provider: Maryanne Sims PA-C HPI narrative: 54-year-old female with a past medical history lymphadenopathy, GREGORIA on CPAP, pneumonitis, eczema presenting to the ED complaining of feeling generally unwell/fatigue and diffuse body myalgias x few days. Admits was taking 20 day Dexamethasone taper prescribed by tubing machine tender for eczema, however, stopped taking after about 11 days due to adverse side effects of increased appetite and weight gain. Has been off medication for about 1 week, states initially felt okay, however now has myalgias. Denies calling tubing machine tender. States eczema as improved/resolved at present. Denies fever, chills, chest pain, shortness of breath, abdominal pain, vomiting, diarrhea, sick contacts Related Data Home Medications ?Medication ?Instructions ?Recorded ?Confirmed CPAP (CPAP Machine/Device) 10/16/23 bupropion HCl 150 mg 24 hr tablet, 150 mg PO QAM 10/16/23 extended release bupropion HCl 300 mg 24 hr tablet, 300 mg PO QAM 10/16/23 extended release celecoxib 200 mg capsule mg PO PRN 10/16/23 deutetrabenazine 6 mg tablet 6 mg PO BID 10/16/23 (Austedo) dicyclomine 20 mg tablet 20 mg PO QID PRN 10/16/23 dupilumab 300 mg/2 mL subcutaneous mg subcut 10/16/23 syringe (Dupixent) empagliflozin 25 mg tablet 25 mg PO QAM 10/16/23 (Jardiance) famotidine 20 mg tablet 20 mg PO BEDTIME 10/16/23 insulin aspart U-100 100 unit/mL 0 - 250 unit subcut DAILY 10/16/23 subcutaneous solution (Novolog U-100 Insulin aspart) insulin degludec 200 unit/mL (3 unit subcut DIRECTED 10/16/23 mL) subcutaneous pen (Tresiba FlexTouch U-200 insulin) levocetirizine 5 mg tablet 5 mg PO BID 10/16/23 levothyroxine 200 mcg tablet mcg PO 10/16/23 (Synthroid) losartan 25 mg tablet 25 mg PO DAILY 10/16/23 lurasidone 120 mg tablet 120 mg PO QAM 10/16/23 naratriptan 2.5 mg tablet 2.5 mg PO headache 10/16/23 ondansetron 4 mg disintegrating 4 mg PO Q8H PRN 10/16/23 tablet oxycodone 15 mg tablet,crush 15 mg PO Q12H 10/16/23 resistant,extended release 12 hr (OxyContin) oxycodone 15 mg tablet,crush 15 mg PO Q12H 10/16/23 resistant,extended release 12 hr (OxyContin) pantoprazole 40 mg tablet,delayed 40 mg PO BID 10/16/23 release plecanatide 3 mg tablet (Trulance) 3 mg PO DAILY 10/16/23 pregabalin 150 mg capsule 150 mg PO TID 10/16/23 ramelteon 8 mg tablet 16 mg PO BEDTIME 10/16/23 ropinirole 2 mg tablet 2 mg PO restless legs 10/16/23 rosuvastatin 20 mg tablet 20 mg PO QPM 10/16/23 simethicone 125 mg capsule (Gas 125 mg PO TID PRN 10/16/23 Relief Extra Strength) sucralfate 1 gram tablet 1 g PO TID 10/16/23 tirzepatide 10 mg/0.5 mL mg subcut QWEEK 10/16/23 subcutaneous pen injector (Davi) tizanidine 4 mg tablet 4 mg PO TID PRN muscle spasm 10/16/23 dapagliflozin propanediol 10 mg 10 mg PO DAILY 09/23/24 tablet (Farxiga) tralokinumab-ldrm 300 mg/2 mL 300 mg subcut Q2W 09/23/24 subcutaneous auto-injector (Adbrendon) Previous Rx's ?Medication ?Instructions ?Recorded chlorhexidine gluconate 0.12 % 15 ml buccal BID 14 days #420 mL 10/16/23 mouthwash Allergies Allergy/AdvReac Type Severity Reaction Status Date / Time gabapentin AdvReac Severe Blurry Verified 10/18/24 10:21 Vision metformin AdvReac Severe Unknown Verified 10/18/24 10:21 Review of Systems Review of Systems: Yes all other systems are reviewed and are negative Constitutional: Constitutional: Reports as per [facility] Past Medical History Attestation statement: The following information was validated with the patient. Source: old records reviewed Medical History Lymphadenopathy, mediastinal GREGORIA on CPAP Hiatal hernia Pulmonary nodule Pneumonitis Social History Social History Patient Tobacco Use Status: Never used Tobacco Advance Directives: Yes Advance Directives Information Provided: Yes Advance Directives on File: No Physical Exam ED Vital Signs: Vital Signs - 24 hr 10/18/24 10:18 Temperature 98.3 F Pulse Rate 97 Respiratory Rate 18 Blood Pressure 121/64 Pulse Oximetry 94 Oxygen Delivery Method Room Air BMI result Body Mass Index 54.4 Const General: cooperative, healthy appearing and no acute distress Orientation/consciousness: patient oriented x3 Limitations: no limitations HENMT Head: Yes normal to inspection and Yes atraumatic Ears: hearing grossly normal bilaterally General nose exam: Normal external nose present Face and sinus: Yes normal facial exam Eyes General: appearance normal, both eyes and all related structures EOM: EOMs intact bilaterally Neck Neck: Yes normal visual inspection and Yes no meningeal signs Resp Effort & Inspection: normal respiratory effort and no respiratory distress Cardio Rate: regular rate Skin Other: Dry skin noted to back. No rash to palms/soles or mucous membranes Rashes: no rashes Wounds: no wounds Neuro General: patient oriented x3, tone normal and no meningeal signs Cranial nerves: Yes CN's II-XII intact bilaterally Gait exam (Neuro): Normal gait present Extrem General: Yes normal to inspection Course Course Course Narrative: -viral testing negative Results discussed with patient including worrisome signs and symptoms and strict return precautions, and when to return to the emergency department. They verbalized understanding and feel safe for discharge at this time. Medical Decision Making Medical Decision Making MDM Narrative: 54-year-old female with a past medical history lymphadenopathy, GREGORIA on CPAP, pneumonitis, eczema presenting to the ED complaining of feeling generally unwell/fatigue and diffuse body myalgias x few days. On exam vital signs stable, NAD, nontoxic appearing, ambulating with steady gait, no focal deficits, no appreciable eczematous rash. Concern for viral illness vs ?Dehydration vs adverse steroid reaction. Low suspicion for ACS, infectious etiology, rhabdomyolysis plan: Viral testing, labs offered however declined Please refer to course for remaining clinical decision making, interpretation of labs/imaging results, and discussions with consultants and/or family members. Differential Diagnosis Differential Diagnoses: The differential diagnosis associated with the presentation includes As above Admission/Observation Consideration of admission/observation: Escalation of care including admission/observation considered Lab Data MDM Lab Attestation statement: I reviewed the patient's lab results. Labs: Lab Results 10/18/24 Range/Units 10:38 Influenza Type A (PCR) NEGATIVE (Negative) Influenza Type B (PCR) NEGATIVE (Negative) RSV RNA Qual (PCR) NEGATIVE (Negative) SARS-CoV-2 RNA (RT-PCR) NEGATIVE (Negative) Radiology Impression Discussion of test interpretation with radiology: I have reviewed the radiologist's reading. External Record Review External record reviewed: Inpatient record, Office record, Outpatient record, Prior outpatient labs, Prior outpatient radiology, Primary care record and Outside ED record Tests considered The following testing was considered but not selected: As above Prescription Management I considered prescription management with: Other Chronic Conditions Patient?s care impacted by: Other Social Determinants Patient?s care significantly limited by Social Determinants of Health including: Other Social Determinant of Health Discharge Plan Discharge Clinical Impression: Acute viral syndrome Patient Disposition: Home, Self-Care Instructions: Viral Syndrome (ED) Additional Instructions: You tested negative for COVID, flu, RSV You likely have a virus No antibiotics are indicated at this time Make sure you are staying hydrated. Drink plenty of fluids. Rest Alternate Tylenol and Motrin at home as needed for body aches and fever Follow-up with your doctor. If symptoms persist or worsen return to the emergency department *If you are a child & not tolerating liquid or urinating for more than 6 hours, or fevers are uncontrolled with medications at home, return to the emergency department* Prescriptions: No Action (DME) CPAP Machine/Device Device See Rx Instructions .ROUTE Rx Instructions: As directed ondansetron 4 mg tablet,disintegrating 4 mg PO Q8H PRN pantoprazole 40 mg tablet,delayed release (DR/EC) 40 mg PO BID Austedo 6 mg tablet 6 mg PO BID Dupixent Syringe 300 mg/2 mL syringe subcut pregabalin 150 mg capsule 150 mg PO TID Trulance 3 mg tablet 3 mg PO DAILY ropinirole 2 mg tablet 2 mg PO Mounjaro 10 mg/0.5 mL pen injector subcut QWEEK ramelteon 8 mg tablet 16 mg PO BEDTIME simethicone [Gas Relief Extra Strength] 125 mg capsule 125 mg PO TID PRN insulin degludec [Tresiba FlexTouch U-200] 200 unit/mL (3 mL) insulin pen subcut DIRECTED Jardiance 25 mg tablet 25 mg PO QAM tizanidine 4 mg tablet 4 mg PO TID PRN (Reason: muscle spasm) losartan 25 mg tablet 25 mg PO DAILY levothyroxine [Synthroid] 200 mcg tablet PO insulin aspart U-100 [Novolog U-100 Insulin aspart] 100 unit/mL solution 0 - 250 unit subcut DAILY sucralfate 1 gram tablet 1 g PO TID bupropion HCl 150 mg tablet extended release 24 hr 150 mg PO QAM bupropion HCl 300 mg tablet extended release 24 hr 300 mg PO QAM rosuvastatin 20 mg tablet 20 mg PO QPM lurasidone 120 mg tablet 120 mg PO QAM oxycodone [OxyContin] 15 mg tablet,oral only,ext.rel.12 hr 15 mg PO Q12H celecoxib 200 mg capsule PO PRN famotidine 20 mg tablet 20 mg PO BEDTIME dicyclomine 20 mg tablet 20 mg PO QID PRN naratriptan 2.5 mg tablet 2.5 mg PO levocetirizine 5 mg tablet 5 mg PO BID oxycodone [OxyContin] 15 mg tablet,oral only,ext.rel.12 hr 15 mg PO Q12H chlorhexidine gluconate 0.12 % mouthwash 15 ml buccal BID 14 Days Qty: 420 0RF Adbry 300 mg/2 mL auto-injector 300 mg subcut Q2W dapagliflozin propanediol [Farxiga] 10 mg tablet 10 mg PO DAILY Referrals: Physician,Nonstaff [Physician] - 3 days Print Language: Monegasque
--- OUTSIDE RECORDS SUMMARY | 2024-10-18 12:33 | XMS_ITS ---
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 Role Phone Faustina Aguila Primary Care Provider Iftikhar Field Unavailable [phone] Allergies Allergen (clinical drug ingredient) Drug/Non Drug Allergy documented on EMR Reaction Allergy Type Onset Date Status gabapentin Gabapentin Unknown Drug Allergy Activ e metformin Metformin Unknown Drug Allergy Active REASON FOR VISIT At Risk Footcare Medications Medication SIG (Take, Route, Frequency, Duration) Notes Start Date End Date Status NexIUM 40 MG 1 capsule Orally Onc e a day for 30 day(s) Not-Taking hydrOXYzine HCl 50 MG/ML 1 ml as needed Intramuscular every 6 hrs for 30 day(s) Not-Taking Linzess 145 MCG 1 capsule at least 3 0 minutes before the first meal of the day on an empty stomach Orally Once a day for 30 day(s) Not-Taking Lutera Not-Taking Cyproheptadine Not-T aking Extra Depth Orthopedic Shoes (1 Pair) with Customized Heat Molded Multidensity Innersoles (3 Pair) as directed Dx: NIDDM/Polyneuropathy (E11.42), Hammertoe Foot Deformity (M20.41,M20.42), Preulcerative Skin Lesion(s) (L85.1 01/24/2024 Active Prevacid 30 MG 1 capsule before a m eal Orally Once a day for 30 day(s) Not-Taking Ozempic Not-Taking Jardiance Not-Taking Dupixent Not-Taking Adbry 150 MG/ML Subcutaneous for 28 Days Active Hydrocortisone 2.5 % 1 application Externally Twice a day for 30 days Active Ammonium Lactate 12 % 1 application to affected area Externally to feet Twice a day for 30 days Active Bentyl Active Ciclopirox Olamine 0.77 % APPLY 1 APPLIC ATION TO AFFECTED AREA EXTERNALLY TO FEET TWICE A DAY for 30 Active Zanaflex 4 MG 1 tablet as needed Orally Three times a day Active Zofran Active Xyzal Allergy 24HR 5 MG 1 tablet in the evening Orally Once a day for 30 day(s) Active Wellbutrin XL Active NovoLOG Active Voltaren 1 % as directed Externally Active Synthroid 200 MCG 1 tablet in the morn ing on an empty stomach Orally Once a day for 30 day(s) Active Ritalin 20 MG 1 tablet on an empty stomach Orally Twice a day Active rOPINIRole HCl 0.25 MG 1 tablet 1 to 3 h ours before bedtime Orally Once a day for 30 day(s) Active Qnasl 80 MCG/ACT 2 sprays in each nostril Nasally Once a day for 30 day(s) Active oxyCODONE HCl 15 MG 1 tablet Orally ever y 6 hrs Active OxyCONTIN Active Multivitamin - 1 tablet Orally Once a day for 30 day(s) Active Protonix 40 MG 1 tablet Orally Once a day Active Pepcid Active Magnesium 400 MG as directed Orally Active Latuda 120 MG 1 tablet in the even ing with food Orally Once a day for 30 day(s) Active Mounjaro Active Halobetasol Propionate 0.05 % 1 application Externally Once a day for 7 day(s) Active Hydrocortisone 2.5 % 1 application Externally Once a day Active Calcium Citrate + Ac tive Austedo 6 MG 1 tablet with food Orally Twice a day Active Farxiga Active Clobetasol Prop-Levocetirizine 0.05-2 % as directed Externally Activ e CeleBREX 200 MG 1 capsule with food Orally Once a day for 30 day(s) Active Social History Tobacco Use: Social History Observation Description Date Details (start date - stop date) Never Smoker NA - NA Tobacco Use/Smoking Question Answer Notes Are you a: nonsmoker Additional Findings: Tobacco Non-User Current no n-smoker Alcohol Screen Question Answer Notes Did you have a drink containing alcohol in the p ast year? No Points 0 Interpretation Negative Tobacco use other than smoking: Question Answer Notes Are you an other tobacco user? No Vital Signs Weight 311 lbs 04/03/2024 BMI 51.75 kg/m2 04/03/2024 Procedures Procedure Date Ordered Date Performed Result Body Sit e 63216-DTWFVYV NAIL, 6 OR MORE 04/03/2024 N/A 51216-ENEK SKIN LESIONS, OVER 4 04/03/2024 N/A Encounters Encounter Location Date Provider Diagnosis [facility] [address] 04/03/2024 Iftikhar Anita Type 2 diabetes mellitus with diabetic polyneuropathy E11.42 and Tinea unguium B35.1 Assessments Encounter Date Diagnosis (ICD Code) Assessment Notes Treatment Notes Treatment Clinical Notes Section Notes 04/03/2024 Type 2 diabetes mellitus with diabetic polyneuropathy (ICD-10 - E11.42) 04/03/2024 Tinea unguium (ICD-10 - B35.1) Plan Of Treatment Pending Test Test Name Order Date 69224-RIMWIDO NAIL, 6 OR MORE 04/03/2024 73598-MXCU SKIN LESIONS, OVER 4 04/03/20 24 Next Appt Details Follow Up: prn, Reason: Provider Name:Iftikhar Howard , 12/18/2024 08:30:00 AM, [address] [facility], [address] [facility] [place], [place], [address], Procedure Notes * Category Sub-Category Detail Notes Debride Nail 6-10 Nail debridement Nail debridem ent performed extensively to reduce/remove overall nail length, girth, thickness, subungual debris, and necrotic tissue, by manual and electrical means through the use of a nail nipper and/or dremel, to more viable healthy nail plate or bed tissue 6-10. Silver nitrate used for any petechial bleeding as necessary. Patient chooses, no pharmaceutical tx (78638) Keratoma Treatment Parring or Cutting o f Benign Hyperkeratotic Lesion(s) 59169 ( More than 4 Lesions ) - The Benign hyperkeratotic lesions, as described above were pared, and/or cut utilizing a sterile 15 blade, tissue nippers, and/or dremel Progress Notes * Margi OCASIO EDOB: [birth year] (54 yo F)Acc No.[id number]:04/03/2024 Progress Note Patient:?Margi Ocasio Provider:?Iftikhar Howard DPM :1970???Age:54 Y???Sex:Female D ate:04/03/2024 Address:[address] , [address] , [facility] Pcp:Faustina Aguila Subjective: * Chief Complaints: * ???At Risk Footcare * HPI: ???At Risk footcare:?Pt States Last PCP Visit:?Date?03/08/2024 ???Toe pain:?Treatments:?Rx shoes , states still needs.? * ROS:?General/Constitutional:?Nausea?denies.?Vomiting?denies.?Hunger Thirst?denies.?Loss appetite?denies.?Chills?denies.?Fatigue?denies.?Fever?denies.?Night Sweats?denies.?Unexplained weight loss?denies.?Unexplained weight gain?denies.?HEENTM:?Dentures?admits.?Dizziness?denies.?Glasses/contacts?admits.?Retinopathy?de nies.?Blurred/double vision?admits.?TMJ?denies.?Discharge/drainage?denies.?Implants?denies.?Sore throat?denies.?Dental implants?denies.?Hard of hearing ?denies.?Difficulty chewing/swallowing/speaking?denies.?Nose bleeds?denies.?Sore mouth?denies.?Respiratory:?On Oxygen?denies.?Pneumonia/pleurisy?denies.?Bronchitis?denies.?Emphysema?denies.?C oughing?denies.?Cough blood?denies.?Shortness of breath?denies.?Wheezing?denies.?Cardiovascular:?Pacemaker?denies.?MVP?denies.?WPW?denies.?CHF?denies.?Heart attack?denies.?Septal defect?denies.?Rapid beat?denies.?Chest pain ?denies.?Atrial Fib.?denies.?Murmur/Palpitations?denies.?Gastrointestinal:?Hemorrhoids?admits.?Stomach/Abdominal pain?admits.?Dark blood stool?denies.?Irritable bowel ?denies.?Constipation?denies.?Diarrhea?denies.?Hematology:?Swelling?admits.?Clots?denies.?Varicose Veins?denies.?Bruising?denies.?Bleeding problem?denies.?Genitourinary:?Blood urine?denies.?Frequent/Painfu/urination/bladder control?denies.?Kidney stones?denies.?Infection (UTI)?denies.?Nephropathy?denies.?sex trans dis (STD)?denies.?Prostate?denies.?Musculoskeletal:?Hammertoes?admits.?Bunions?denies.?Back Pain?admits.?Muscle Cramps/ Resting?denies.?Muscle cramps / walking?denies.?Generalized aches and pains?denies.?Weakness?denies.?Integ.:?Heck?denies.?Scars?denies.?Corns/calluses?admits.?Ingrown nails?admits.?Painful nails?denies.?Open Sores?denies.?Rashes?denies.?Neurologic:?Difficulty sleeping?denies.?Brain disorder?denies.?Numbness?admits.?Balance trouble?denies.?Confusion?denies.?Fainting/blackouts?denies.?Tingling?admits.?Tr emors?denies.? * Medical History:? * Surgical History:?gastric by pass 2018left shoulder knee surgery, left knee surgery, right carpal tunnel surgery * Hospitalization/Major Diagno stic Procedure:?No Hospitalization History. * Family History:?Mother: paola araya, diagnosed with Diabetic - NIDDM, Unspecified essential hypertension, Unspecified cerebral artery occlusion with cerebral infarction, Other specified conditions influencing health status.?Father: alive, diagnosed with Diabetic - NIDDM, Unspecified essential hypertension.?Maternal Grand Mother: diagnosed with Other malignant neoplasm of unspecified site.?Maternal Grand Father: diagnosed with Unspecified essential hypertension, Other malignant neoplasm of unspecified site.?Siblings: diagnosed with Family history of arthritis.? * Social History:?Tobacco Use:?Tobacco Use/Smoking?Are you a:?nonsmoker ?Additional Findings: Tobacco Non-User?Current non-smoker ?Tobacco use other than smoking?Are you an other tobacco user??No ???Drugs/Alcohol:?Drugs?Have you used drugs other than those for medical reasons in the past 12 months??No ?Alcohol Screen?Did you have a drink containing alcohol in the past year??No ?Points?0 ?Interpretation?Negative ???Miscellaneous:?Caffeine: yes, 3-5 cups per day. ?no Children. ?Exercise: yes, occasional, swimming. ?Marital status: single. ?Occupation: Disabled. * Medications:?TakingAustedo 6 MG Tablet 1 tablet with food Orally Twice a dayCalcium Citrate + CeleBREX 200 MG Capsule 1 capsule with food Orally Once a dayClobetasol Prop-Levocetirizine 0.05-2 % Shampoo as directed Externally Farxiga Halobetasol Propionate 0.05 % Cream 1 application Externally Once a dayHydrocortisone 2.5 % Lotion 1 application Externally Once a dayLatuda 120 MG Tablet 1 tablet in the evening with food Orally Once a dayMagnesium 400 MG Tablet as directed Orally Mounjaro Multivitamin - Tablet 1 tablet Orally Once a dayOxyCONTIN oxyCODONE HCl 15 MG Tablet 1 tablet Orally every 6 hrsPepcid Protonix 40 MG Tablet Delayed Release 1 tablet Orally Once a dayQnasl 80 MCG/ACT Aerosol Solution 2 sprays in each nostril Nasally Once a dayrOPINIRole HCl 0.25 MG Tablet 1 tablet 1 to 3 hours before bedtime Orally Once a dayRitalin 20 MG Tablet 1 tablet on an empty stomach Orally Twice a daySynthroid 200 MCG Tablet 1 tablet in the morning on an empty stomach Orally Once a dayVoltaren 1 % Gel as directed Externally Wellbutrin XL Xyzal Allergy 24HR 5 MG Tablet 1 tablet in the evening Orally Once a dayZofran Zanaflex 4 MG Tablet 1 tablet as needed Orally Three times a dayNovoLOG Ciclopirox Olamine 0.77 % Cream APPLY 1 APPLICATION TO AFFECTED AREA EXTERNALLY TO FEET TWICE A DAY Bentyl Ammonium Lactate 12 % Cream 1 application to affected area Externally to feet Twice a dayHydrocortisone 2.5 % Ointment 1 application Externally Twice a dayAdbry 150 MG/ML Solution Prefilled Syringe Subcutaneous Extra Depth Orthopedic Shoes (1 Pair) with Customized Heat Molded Multidensity Innersoles (3 Pair) as directed Dx: NIDDM/Polyneuropathy (E11.42), Hammertoe Foot Deformity (M20.41,M20.42), Preulcerative Skin Lesion(s) (L85.1Taking Austedo 6 MG Tablet 1 tablet with food Orally Twice a dayTaking Calcium Citrate + Taking CeleBREX 200 MG Capsule 1 capsule with food Orally Once a dayTaking Clobetasol Prop-Levocetirizine 0.05-2 % Shampoo as directed Externally Taking Farxiga Taking Halobetasol Propionate 0.05 % Cream 1 application Externally Once a dayTaking Hydrocortisone 2.5 % Lotion 1 application Externally Once a dayTaking Latuda 120 MG Tablet 1 tablet in the evening with food Orally Once a dayTaking Magnesium 400 MG Tablet as directed Orally Taking Mounjaro Taking Multivitamin - Tablet 1 tablet Orally Once a dayTaking OxyCONTIN Taking oxyCODONE HCl 15 MG Tablet 1 tablet Orally every 6 hrsTaking Pepcid Taking Protonix 40 MG Tablet Delayed Release 1 tablet Orally Once a dayTaking Qnasl 80 MCG/ACT Aerosol Solution 2 sprays in each nostril Nasally Once a dayTaking rOPINIRole HCl 0.25 MG Tablet 1 tablet 1 to 3 hours before bedtime Orally Once a dayTaking Ritalin 20 MG Tablet 1 tablet on an empty stomach Orally Twice a dayTaking Synthroid 200 MCG Tablet 1 tablet in the morning on an empty stomach Orally Once a dayTaking Voltaren 1 % Gel as directed Externally Taking Wellbutrin XL Taking Xyzal Allergy 24HR 5 MG Tablet 1 tablet in the evening Orally Once a dayTaking Zofran Taking Zanaflex 4 MG Tablet 1 tablet as needed Orally Three times a dayTaking NovoLOG Taking Ciclopirox Olamine 0.77 % Cream APPLY 1 APPLICATION TO AFFECTED AREA EXTERNALLY TO FEET TWICE A DAY Taking Bentyl Taking Ammonium Lactate 12 % Cream 1 application to affected area Externally to feet Twice a dayTaking Hydrocortisone 2.5 % Ointment 1 application Externally Twice a dayTaking Adbry 150 MG/ML Solution Prefilled Syringe Subcutaneous Taking Extra Depth Orthopedic Shoes (1 Pair) with Customized Heat Molded Multidensity Innersoles (3 Pair) as directed Dx: NIDDM/Polyneuropathy (E11.42), Hammertoe Foot Deformity (M20.41,M20.42), Preulcerative Skin Lesion(s) (L85.1Not- Taking/PRNDupixent Jardiance Ozempic Prevacid 30 MG Capsule Delayed Release 1 capsule before a meal Orally Once a dayLutera Linzess 145 MCG Capsule 1 capsule at least 30 minutes before the first meal of the day on an empty stomach Orally Once a dayCyproheptadine hydrOXYzine HCl 50 MG/ML Solution 1 ml as needed Intramuscular every 6 hrsNexIUM 40 MG Capsule Delayed Release 1 capsule Orally Once a dayMedication List reviewed and reconciled with the patientNot-Taking/PRN Dupixent Not-Taking/PRN Jardiance Not-Taking/PRN Ozempic Not-Taking/PRN Prevacid 30 MG Capsule Delayed Release 1 capsule before a meal Orally Once a dayNot-Taking/PRN Lutera Not-Taking/PRN Linzess 145 MCG Capsule 1 capsule at least 30 minutes before the first meal of the day on an empty stomach Orally Once a dayNot-Taking/PRN Cyproheptadine Not-Taking/PRN hydrOXYzine HCl 50 MG/ML Solution 1 ml as needed Intramuscular every 6 hrsNot-Taking/PRN NexIUM 40 MG Capsule Delayed Release 1 capsule Orally Once a dayMedication List reviewed and reconciled with the patient * Allergies:?GabapentinMetform inyes[Allergies Verified] Objective: * Vitals:?Wt:311, BMI:51.75, S hoe size:8.5-9, BS:117, Ht-cm: 165.1 cm, Wt-k.07 kg. * ???Past Orders: ???Lab:HEMOGLOBIN A1C (GLYCO HEMOGLOBIN) (Order Date - 07/04/2023) (Collection Date - 07/04/2023) ? Value Reference Range ?HEMOGLOBIN A1C % (HH) 7.1 * Examination: ???Neurological: ?SENSORY:?Neurological exam demonstrates, reduced sharp/dull pin prick discrimination , 5.07 monofilament test performed at plantar aspects of 5 varied sites per foot shows sensation, reduced , B/L, Pt relates, paresthesia, B/L , Pt relates, paresthesia, B/L.?Nails: ?NAILS are:?Elongated, overgrown, dystrophic, lytic, greater than 3mm thick, discolored and friable with crumbly malodorous subungual debris, 1-5 B/L.?Dermatologic: ?SKIN FINDINGS:?Skin exam reveals Keratotic lesion(s) located at, Plantar, IPJ, TA, Plantar, IPJ, T5, SUB MTH (s), 1, B/L , SUB MTH (s), 2, B/L , SUB MTH (s), 3, B/L , SUB MTH (s), 4, B/L , SUB MTH (s), 5, B/L , SUB 5th MTBase, B/L , Heel(s), B/L.? Assessment: * Assessment: 1.?Type 2 diabetes mellitus with diabetic polyneuropathy - E11.42 (Primary)?2.?Tinea unguium - B35.1? Plan: * Treatment: * Procedures:?Debride Nail 6-10:?Nail debridement?Nail debridement performed extensively to reduce/remove overall nail length, girth, thickness, subungual debris, and necrotic tissue, by manual and electrical means through the use of a nail nipper and/or dremel, to more viable healthy nail plate or bed tissue 6-10. Silver nitrate used for any petechial bleeding as necessary. Patient chooses, no pharmaceutical tx (15531).?Keratoma Treatment:?Parring or Cutting of Benign Hyperkeratotic Lesion(s)?97277 ( More than 4 Lesions ) - The Benign hyperkeratotic lesions, as described above were pared, and/or cut utilizing a sterile 15 blade, tissue nippers, and/or dremel.? * Procedure Codes:?49660 DEBRI DE NAIL, 6 OR MORE, Modifiers: XS 63962 TRIM SKIN LESIONS, OVER 4, Modifiers: XS * Preventive Medicine:? ??Counseling:?Shoe Gear Counseling:?Patient to obtain shoes hopefully soon.? * Follow Up:?prn * Images: * Sign off status: Completed true * Provider:?Iftikhar Howard DPM Date:?2023 Generated for Brielle bond/Jessica/Elliott on:?10/18/2024 12:33 PM EST History and Physical Notes * HPI (History of Present Illness) Category Sub-Category Detail Notes Category Not es Toe pain Treatments: Rx shoes , state s still needs At Risk footcare Pt States Last PCP Visit: Date: 4 Examination Category Sub-Category Detail Notes Category Not es Neurological SENSORY: Neurological exa m demonstrates, reduced sharp/dull pin prick discrimination , 5.07 monofilament test performed at plantar aspects of 5 varied sites per foot shows sensation, reduced , B/L, Pt relates, paresthesia, B/L , Pt relates, paresthesia, B/L Dermatologic SKIN FINDINGS: Skin exam reveal s Keratotic lesion(s) located at, Plantar, IPJ, TA, Plantar, IPJ, T5, SUB MTH (s), 1, B/L , SUB MTH (s), 2, B/L , SUB MTH (s), 3, B/L , SUB MTH (s), 4, B/L , SUB MTH (s), 5, B/L , SUB 5th MTBase, B/L , Heel(s), B/L Nails NAILS are: Elongated, overg rown, dystrophic, lytic, greater than 3mm thick, discolored and friable with crumbly malodorous subungual debris, 1-5 B/L
--- OUTSIDE RECORDS SUMMARY | 2024-10-18 12:34 | XMS_ITS ---
Author Organization [facility] Centerarv[facility] montesinos [place] Address [address] [place] [address] Care Team Providers Care Black Jack Dealer Name Role Phone Faustina Aguila Primary Care Provider Iftikhar Field Unavailable [phone] Allergies Allergen (clinical drug ingredient) Drug/Non Drug Allergy documented on EMR Reaction Allergy Type Onset Date Status gabapentin Gabapentin Unknown Drug Allergy Activ e metformin Metformin Unknown Drug Allergy Active REASON FOR VISIT At Risk Footcare Medications Medication SIG (Take, Route, Frequency, Duration) Notes Start Date End Date Status Farxiga Active Calcium Citrate + Ac tive Austedo 6 MG 1 tablet with food Orally Twice a day Active Clobetasol Prop-Levocetirizine 0.05-2 % as directed Externally Activ e CeleBREX 200 MG 1 capsule with food Orally Once a day for 30 day(s) Active hydrOXYzine HCl 50 MG/ML 1 ml as needed Intramuscular every 6 hrs for 30 day(s) Not-Taking Cyproheptadine Not-T aking NexIUM 40 MG 1 capsule Orally Onc e a day for 30 day(s) Not-Taking Linzess 145 MCG 1 capsule at least 3 0 minutes before the first meal of the day on an empty stomach Orally Once a day for 30 day(s) Not-Taking Lutera Not-Taking Dupixent Not-Taking Extra Depth Orthopedic Shoes (1 Pair) with Customized Heat Molded Multidensity Innersoles (3 Pair) as directed Dx: NIDDM/Polyneuropathy (E11.42), Hammertoe Foot Deformity (M20.41,M20.42), Preulcerative Skin Lesion(s) (L85.1 01/24/2024 Active Ozempic Not-Taking Jardiance Not-Taking Prevacid 30 MG 1 capsule before a m eal Orally Once a day for 30 day(s) Not-Taking Ammonium Lactate 12 % 1 application to affected area Externally to feet Twice a day for 30 days Active Bentyl Active Adbry 150 MG/ML Subcutaneous for 28 Days Active Hydrocortisone 2.5 % 1 application Externally Twice a day for 30 days Active Ciclopirox Olamine 0.77 % APPLY 1 APPLIC ATION TO AFFECTED AREA EXTERNALLY TO FEET TWICE A DAY for 30 Active Wellbutrin XL Active Zofran Active Xyzal Allergy 24HR 5 MG 1 tablet in the evening Orally Once a day for 30 day(s) Active NovoLOG Active Zanaflex 4 MG 1 tablet as needed Orally Three times a day Active rOPINIRole HCl 0.25 MG 1 tablet 1 to 3 h ours before bedtime Orally Once a day for 30 day(s) Active Qnasl 80 MCG/ACT 2 sprays in each nostril Nasally Once a day for 30 day(s) Active Synthroid 200 MCG 1 tablet in the morn ing on an empty stomach Orally Once a day for 30 day(s) Active Ritalin 20 MG 1 tablet on an empty stomach Orally Twice a day Active Voltaren 1 % as directed Externally Active OxyCONTIN Active Multivitamin - 1 tablet Orally Once a day for 30 day(s) Active Pepcid Active oxyCODONE HCl 15 MG 1 tablet Orally ever y 6 hrs Active Protonix 40 MG 1 tablet Orally Once a day Active Halobetasol Propionate 0.05 % 1 application Externally Once a day for 7 day(s) Active Latuda 120 MG 1 tablet in the even ing with food Orally Once a day for 30 day(s) Active Hydrocortisone 2.5 % 1 application Externally Once a day Active Mounjaro Active Magnesium 400 MG as directed Orally Active Social History Tobacco Use: Social History Observation Description Date Details (start date - stop date) Never Smoker NA - NA Tobacco Use/Smoking Question Answer Notes Are you a: nonsmoker Additional Findings: Tobacco Non-User Current no n-smoker Tobacco use other than smoking: Question Answer Notes Are you an other tobacco user? No Vital Signs Height 5ft5in in 06/30/2024 Weight 301 lbs 06/30/2024 BMI 50.08 kg/m2 06/30/2024 Procedures Procedure Date Ordered Date Performed Result Body Sit e 58105-[id number] NAIL, 6 OR MORE 06/30/2024 N/A 00492-[id number] SKIN LESIONS, OVER 4 06/30/2024 N/A Encounters Encounter Location Date Provider Diagnosis [facility] [place] [address] [facility] [address] [place] [address] 06/30/2024 Iftikhar Howard Type 2 diabetes mellitus with diabetic polyneuropathy E11.42 and Tinea unguium B35.1 Assessments Encounter Date Diagnosis (ICD Code) Assessment Notes Treatment Notes Treatment Clinical Notes Section Notes 06/30/2024 Type 2 diabetes mellitus with diabetic polyneuropathy (ICD-10 - E11.42) 06/30/2024 Tinea unguium (ICD-10 - B35.1) Plan Of Treatment Pending Test Test Name Order Date [id number] NAIL, 6 OR MORE 06/30/2024 [id number] SKIN LESIONS, OVER 4 06/30/20 24 Next Appt Details Follow Up: prn, Reason: Provider Name:Iftikhar Howard , 12/18/2024 08:30:00 AM, [address] [facility], [address] [facility], [place], [address], Procedure Notes * Category Sub-Category Detail Notes Debride Nail 6-10 Nail debridement Performance o f this nail treatment by a nonprofessional would put this patients foot and overall health at risk. Therefore, debridement to affected nail(s), as described in exam, was performed extensively to reduce/remove overall nail length, girth, thickness, subungual debris, and necrotic tissue, by manual and/or electrical means through the use of a nail nipper and/or dremel-type external grinder, to a more viable healthy nail plate or bed tissue 6-10. Silver nitrate used for any petechial bleeding as necessary. Definitive antifungal treatment options have been reviewed and discussed with the patient. The patient chooses, no pharmaceutical tx - 80873 Keratoma Treatment Parring or Cutting o f Benign Hyperkeratotic Lesion(s) (-57) More than 4 Lesions - The Benign hyperkeratotic lesions, as described in exam, were pared, and/or cut utilizing a sterile 15 blade, tissue nippers, and/or dremel - 25092 Progress Notes * Margi OCASIO EDOB: [id number] (54 yo F)Acc No.[id number]:06/30/2024 Progress Note Patient:Margi MIRANDA Provider:?Iftikhar Howard DPM :1970???Age:54 Y???Sex:Female D ate:06/30/2024 Address:[address], [address], [place] [address] Pcp:Faustina Aguila Subjective: * Chief Complaints: * ???At Risk Footcare * HPI: ???At Risk footcare:?Pt States Last PCP Visit:?Date?06/16/2024 * ROS:?General/Constitutional:?Nausea?denies.?Vomiting?denies.?Hunger Thirst?denies.?Loss appetite?denies.?Chills?denies.?Fatigue?denies.?Fever?denies.?Night Sweats?denies.?Unexplained weight loss?denies.?Unexplained [...] carpal tunnel surgery * Hospitalization/Major Diagno stic Procedure:?Denies Past Hospitalization * Family History:?Mother: paola araya, diagnosed with Diabetic - NIDDM, Unspecified essential hypertension, Unspecified cerebral artery occlusion with cerebral infarction, Other specified conditions influencing health status.?Father: alive, diagnosed with Diabetic - NIDDM, Unspecified essential hypertension.?Maternal Grand Mother: diagnosed with Other malignant neoplasm of unspecified site.?Maternal Grand Father: diagnosed with Other malignant neoplasm of unspecified site, Unspecified essential hypertension.?Siblings: diagnosed with Family history of arthritis.? * Social History:?Tobacco Use:?Tobacco Use/Smoking?Are you a:?nonsmoker ?Additional Findings: Tobacco Non-User?Current non-smoker ?Tobacco use other than smoking?Are you an other tobacco user??No * Medications:?TakingAustedo 6 MG Tablet 1 tablet with food Orally Twice a day Calcium Citrate + CeleBREX 200 MG Capsule 1 capsule with food Orally Once a day Clobetasol Prop-Levocetirizine 0.05-2 % Shampoo as directed Externally Farxiga Halobetasol Propionate 0.05 % Cream 1 application Externally Once a day Hydrocortisone 2.5 % Lotion 1 application Externally Once a day Latuda 120 MG Tablet 1 tablet in the evening with food Orally Once a day Magnesium 400 MG Tablet as directed Orally Mounjaro Multivitamin - Tablet 1 tablet Orally Once a day OxyCONTIN oxyCODONE HCl 15 MG Tablet 1 tablet Orally every 6 hrs Pepcid Protonix 40 MG Tablet Delayed Release 1 tablet Orally Once a day Qnasl 80 MCG/ACT Aerosol Solution 2 sprays in each nostril Nasally Once a day rOPINIRole HCl 0.25 MG Tablet 1 tablet 1 to 3 hours before bedtime Orally Once a day Ritalin 20 MG Tablet 1 tablet on an empty stomach Orally Twice a day Synthroid 200 MCG Tablet 1 tablet in the morning on an empty stomach Orally Once a day Voltaren 1 % Gel as directed Externally Wellbutrin XL Xyzal Allergy 24HR 5 MG Tablet 1 tablet in the evening Orally Once a day Zofran Zanaflex 4 MG Tablet 1 tablet as needed Orally Three times a day NovoLOG Ciclopirox Olamine 0.77 % Cream APPLY 1 APPLICATION TO AFFECTED AREA EXTERNALLY TO FEET TWICE A DAY Bentyl Ammonium Lactate 12 % Cream 1 application to affected area Externally to feet Twice a day Hydrocortisone 2.5 % Ointment 1 application Externally Twice a day Adbry 150 MG/ML Solution Prefilled Syringe Subcutaneous Extra Depth Orthopedic Shoes (1 Pair) with Customized Heat Molded Multidensity Innersoles (3 Pair) as directed Dx: NIDDM/Polyneuropathy (E11.42), Hammertoe Foot Deformity (M20.41,M20.42), Preulcerative Skin Lesion(s) (L85.1 Taking Austedo 6 MG Tablet 1 tablet with food Orally Twice a day Taking Calcium Citrate + Taking CeleBREX 200 MG Capsule 1 capsule with food Orally Once a day Taking Clobetasol Prop-Levocetirizine 0.05-2 % Shampoo as directed Externally Taking Farxiga Taking Halobetasol Propionate 0.05 % Cream 1 application Externally Once a day Taking Hydrocortisone 2.5 % Lotion 1 application Externally Once a day Taking Latuda 120 MG Tablet 1 tablet in the evening with food Orally Once a day Taking Magnesium 400 MG Tablet as directed Orally Taking Mounjaro Taking Multivitamin - Tablet 1 tablet Orally Once a day Taking OxyCONTIN Taking oxyCODONE HCl 15 MG Tablet 1 tablet Orally every 6 hrs Taking Pepcid Taking Protonix 40 MG Tablet Delayed Release 1 tablet Orally Once a day Taking Qnasl 80 MCG/ACT Aerosol Solution 2 sprays in each nostril Nasally Once a day Taking rOPINIRole HCl 0.25 MG Tablet 1 tablet 1 to 3 hours before bedtime Orally Once a day Taking Ritalin 20 MG Tablet 1 tablet on an empty stomach Orally Twice a day Taking Synthroid 200 MCG Tablet 1 tablet in the morning on an empty stomach Orally Once a day Taking Voltaren 1 % Gel as directed Externally Taking Wellbutrin XL Taking Xyzal Allergy 24HR 5 MG Tablet 1 tablet in the evening Orally Once a day Taking Zofran Taking Zanaflex 4 MG Tablet 1 tablet as needed Orally Three times a day Taking NovoLOG Taking Ciclopirox Olamine 0.77 % Cream APPLY 1 APPLICATION TO AFFECTED AREA EXTERNALLY TO FEET TWICE A DAY Taking Bentyl Taking Ammonium Lactate 12 % Cream 1 application to affected area Externally to feet Twice a day Taking Hydrocortisone 2.5 % Ointment 1 application Externally Twice a day Taking Adbry 150 MG/ML Solution Prefilled Syringe Subcutaneous Taking Extra Depth Orthopedic Shoes (1 Pair) with Customized Heat Molded Multidensity Innersoles (3 Pair) as directed Dx: NIDDM/Polyneuropathy (E11.42), Hammertoe Foot Deformity (M20.41,M20.42), Preulcerative Skin Lesion(s) (L85.1 Not- Taking/PRNDupixent Jardiance Ozempic Prevacid 30 MG Capsule Delayed Release 1 capsule before a meal Orally Once a day Lutera Linzess 145 MCG Capsule 1 capsule at least 30 minutes before the first meal of the day on an empty stomach Orally Once a day Cyproheptadine hydrOXYzine HCl 50 MG/ML Solution 1 ml as needed Intramuscular every 6 hrs NexIUM 40 MG Capsule Delayed Release 1 capsule Orally Once a day Medication List reviewed and reconciled with the patientNot-Taking/PRN Dupixent Not-Taking/PRN Jardiance Not-Taking/PRN Ozempic Not-Taking/PRN Prevacid 30 MG Capsule Delayed Release 1 capsule before a meal Orally Once a day Not-Taking/PRN Lutera Not-Taking/PRN Linzess 145 MCG Capsule 1 capsule at least 30 minutes before the first meal of the day on an empty stomach Orally Once a day Not-Taking/PRN Cyproheptadine Not-Taking/PRN hydrOXYzine HCl 50 MG/ML Solution 1 ml as needed Intramuscular every 6 hrs Not-Taking/PRN NexIUM 40 MG Capsule Delayed Release 1 capsule Orally Once a day Medication List reviewed and reconciled with the patient * Allergies:?GabapentinMetform inyes[Allergies Verified] Objective: * Vitals:?Ht: 5ft5in, Wt:301, BMI:50.08, Shoe size: 8.5-9, BS: 94, Ht-cm: 165.1 cm, Wt-k.53 kg. * Examination: ???Neurological: ?SENSORY:?Neurological exam demonstrates, reduced [...] diabetes mellitus with diabetic polyneuropathy - E11.42 (Primary)???2.?Tinea unguium - B35.1??? Plan: * Treatment: * Procedures:?Debride Nail 6-10:?Nail debridement?Performance of this nail treatment by a nonprofessional would put this patients foot and overall health at risk. Therefore, debridement to affected nail(s), as described in exam, was performed extensively to reduce/remove overall nail length, girth, thickness, subungual debris, and necrotic tissue, by manual and/or electrical means through the use of a nail nipper and/or dremel-type external grinder, to a more viable healthy nail plate or bed tissue 6-10. Silver nitrate used for any petechial bleeding as necessary. Definitive antifungal treatment options have been reviewed and discussed with the patient. The patient chooses, no pharmaceutical tx - 53823.?Keratoma Treatment:?Parring or Cutting of Benign Hyperkeratotic Lesion(s)?(-57) More than 4 Lesions - The Benign hyperkeratotic lesions, as described in exam, were pared, and/or cut utilizing a sterile 15 blade, tissue nippers, and/or dremel - 79895.? * Procedure Codes:?25721 DEBRI DE NAIL, 6 OR MORE, Modifiers: XS [id number] TRIM SKIN LESIONS, OVER 4, Modifiers: XS * Follow Up:?prn * * Sign off status: Completed true * Provider:?Iftikhar Howard DPM Date:?2023 Generated for Brielle bond/Jessica/Elliott on:?10/18/2024 12:33 PM EST History and Physical Notes * HPI (History of Present Illness) Category Sub-Category Detail Notes Category Not es At Risk footcare Pt States Last PCP [...]
--- OUTSIDE RECORDS SUMMARY | 2024-10-18 12:34 | XMS_ITS | Patient Health Record ---
[facility] Address [address] [place] [address] Care Team Providers Care Certified Public Accountant Name Role Phone Faustina Aguila Primary Care Provider Iftikhar Field Unavailable [phone] Allergies Allergen (clinical drug ingredient) Drug/Non Drug Allergy documented on EMR Reaction Allergy Type Onset Date Status gabapentin Gabapentin Unknown Drug Allergy Activ e metformin Metformin Unknown Drug Allergy Active Results Component Value Reference Range Notes HEMOGLOBIN A1C (GLYCOHEMOGLO BIN) Reviewed date:09/25/2024 09:44:48 AM Interpretation: Performing Lab: Notes/Report: HEMOGLOBIN A1C % (HH) 6.2 Reason For Referral No Information Medications Medication SIG (Take, Route, Frequency, Duration) Notes Start Date End Date Status Clobetasol Prop-Levocetirizine 0.05-2 % as directed Externally Activ e Ciclopirox Olamine 0.77 % APPLY 1 APPLIC ATION TO AFFECTED AREA EXTERNALLY TO FEET TWICE A DAY for 30 Active Farxiga Active Bentyl Active Zanaflex 4 MG 1 tablet as needed Orally Three times a day Active CeleBREX 200 MG 1 capsule with food Orally Once a day for 30 day(s) Active NovoLOG Active Zofran Active OxyCONTIN Active Mounjaro Active Dupixent Not-Taking Multivitamin - 1 tablet Orally Once a day for 30 day(s) Active Latuda 120 MG 1 tablet in the even ing with food Orally Once a day for 30 day(s) Active Adbry 150 MG/ML Subcutaneous for 28 Days Active Magnesium 400 MG as directed Orally Active Halobetasol Propionate 0.05 % 1 application Externally Once a day for 7 day(s) Active Ammonium Lactate 12 % 1 application to affected area Externally to feet Twice a day for 30 days Active Hydrocortisone 2.5 % 1 application Externally Once a day Active Hydrocortisone 2.5 % 1 application Externally Twice a day for 30 days Active Protonix 40 MG 1 tablet Orally Once a day Active Linzess 145 MCG 1 capsule at least 3 0 minutes before the first meal of the day on an empty stomach Orally Once a day for 30 day(s) Not-Taking Qnasl 80 MCG/ACT 2 sprays in each nostril Nasally Once a day for 30 day(s) Active Cyproheptadine Not-T aking oxyCODONE HCl 15 MG 1 tablet Orally ever y 6 hrs Active Prevacid 30 MG 1 capsule before a m eal Orally Once a day for 30 day(s) Not-Taking Pepcid Active Lutera Not-Taking Jardiance Not-Taking Ozempic Not-Taking Austedo 6 MG 1 tablet with food Orally Twice a day Active Calcium Citrate + Ac tive Wellbutrin XL Active Xyzal Allergy 24HR 5 MG 1 tablet in the evening Orally Once a day for 30 day(s) Active Synthroid 200 MCG 1 tablet in the morn ing on an empty stomach Orally Once a day for 30 day(s) Active Extra Depth Orthopedic Shoes (1 Pair) with Customized Heat Molded Multidensity Innersoles (3 Pair) as directed Dx: NIDDM/Polyneuropathy (E11.42), Hammertoe Foot Deformity (M20.41,M20.42), Preulcerative Skin Lesion(s) (L85.1 Active Voltaren 1 % as directed Externally Active rOPINIRole HCl 0.25 MG 1 tablet 1 to 3 h ours before bedtime Orally Once a day for 30 day(s) Active hydrOXYzine HCl 50 MG/ML 1 ml as needed Intramuscular every 6 hrs for 30 day(s) Not-Taking Ritalin 20 MG 1 tablet on an empty stomach Orally Twice a day Active NexIUM 40 MG 1 capsule Orally Onc e a day for 30 day(s) Not-Taking Immunizations Vaccine Route Administration Date Status Comme nts COVID-19 Moderna Vaccine Unknown 10/28/2020 Administere d COVID-19 Moderna Vaccine Unknown 11/25/2020 Administere d Social History Tobacco Use: Social History Observation Description Date Details (start date - stop date) Never Smoker NA - NA Tobacco use other than smoking: Question Answer Notes Are you an other tobacco user? No Tobacco Control (Standard) Question Answer Notes Tobacco use: Nonsmoker Additional Findings: Tobacco non-user Current no nsmoker AUDIT-C (Standard) Question Answer Notes Did you have a drink containing alcohol in the p ast year? No Points 0 Interpretation Negative Problems Problem Type SNOMED Code ICD Code Onset Dates Problem Status W/U Status Risk Notes Problem Acquired hammer toe of right foot (2300212006229564 ) Other hammer toe(s) (acquired), right foot (M20.41) Active confirmed Problem Acquired hammer toe of left foot (1490147952991364 ) Other hammer toe(s) (acquired), left foot (M20.42) Active confirmed Problem Polyneuropathy due to type 2 diabetes mellitus (010803744) Type 2 diabetes mellitus with diabetic polyneuropathy (E11.42) Active confirmed Vital Signs Blood pressure diastolic 80 mm Hg 09/25/2024 Height 5ft5in in 09/25/2024 Blood pressure systolic 120 mm Hg 09/25/2024 Weight 301 lbs 09/25/2024 BMI 50.08 kg/m2 09/25/2024 Procedures Procedure Date Ordered Date Performed Result Body Sit e 12480- Debride <25 sq cm 11/07/2023 N/A 67583-KYGKBPL NAIL, 6 OR MORE 11/21/2023 N/A 90015-XZXN SKIN LESIONS, OVER 4 11/21/2023 N/A 82072-UNQEWAG NAIL, 6 OR MORE 01/24/2024 N/A 84538-WDTF SKIN LESIONS, OVER 4 01/24/2024 N/A 47305-WCBUKXG NAIL, 6 OR MORE 04/03/2024 N/A 86330-BBJU SKIN LESIONS, OVER 4 04/03/2024 N/A 26090-ZKYXRLN NAIL, 6 OR MORE 06/30/2024 N/A 49576-MRWQ SKIN LESIONS, OVER 4 06/30/2024 N/A 85304-VHYQQSJ NAIL, 6 OR MORE 09/25/2024 N/A 15568-HVZY SKIN LESIONS, OVER 4 09/25/2024 N/A Encounters Encounter Location Date Provider Diagnosis [facility] [address] [address] 11/07/2023 Iftikhar Anita Neuropathic ulcer of right heel, limited to breakdown of skin L97.411 and Nummular eczematous dermatitis L30.[address] [address] 11/21/2023 Iftikhar Howard Type 2 diabetes mellitus with diabetic polyneuropathy E11.42 ; Tinea unguium B35.1 ; Neuropathic ulcer of right heel, limited to breakdown of skin L97.411 and Nummular eczematous dermatitis L30.[address] [address] 01/24/2024 Iftikhar Howard Type 2 diabetes mellitus with diabetic polyneuropathy E11.42 ; Tinea unguium B35.1 ; Other hammer toe(s) (acquired), right foot M20.41 and Other hammer toe(s) (acquired), left foot M20.[address] [address] 04/03/2024 Iftikharradha ChavezAnita Type 2 diabetes mellitus with diabetic polyneuropathy E11.42 and Tinea unguium B35.[address] [address] 06/30/2024 Iftikharradha Howard Type 2 diabetes mellitus with diabetic polyneuropathy E11.42 and Tinea unguium B35.[address] [address] 09/25/2024 Iftikhar Howard Type 2 diabetes mellitus with diabetic polyneuropathy E11.42 ; Tinea unguium B35.1 ; Other hammer toe(s) (acquired), right foot M20.41 and Other hammer toe(s) (acquired), left foot M20.[address] [address] 01/23/2024 Iftikhar Howard Assessments Encounter Date Diagnosis (ICD Code) Assessment Notes Treatment Notes Treatment Clinical Notes Section Notes 11/07/2023 Neuropathic ulcer of right heel, limited to breakdown of skin (ICD-10 - L97.411) Response to treatment,Nonap plicable Patient Educated with: WOUND CARE INSTRUCTIONS. pdf (WOUND CARE INSTRUCTIONS. pdf) 11/07/2023 Nummular eczematous dermatitis (ICD-10 - L30.0) 11/21/2023 Type 2 diabetes mellitus with diabetic polyneuropathy (ICD-10 - E11.42) 11/21/2023 Tinea unguium (ICD-10 - B35.1) 01/24/2024 Type 2 diabetes mellitus with diabetic polyneuropathy (ICD-10 - E11.42) 01/24/2024 Tinea unguium (ICD-10 - B35.1) 04/03/2024 Type 2 diabetes mellitus with diabetic polyneuropathy (ICD-10 - E11.42) 04/03/2024 Tinea unguium (ICD-10 - B35.1) 06/30/2024 Type 2 diabetes mellitus with diabetic polyneuropathy (ICD-10 - E11.42) 06/30/2024 Tinea unguium (ICD-10 - B35.1) 09/25/2024 Type 2 diabetes mellitus with diabetic polyneuropathy (ICD-10 - E11.42) 09/25/2024 Tinea unguium (ICD-10 - B35.1) 01/24/2024 Other hammer toe(s) (acquired), right foot (ICD-10 - M20.41) Patient Educated with: DIABETIC FOOT CARE INSTRUCTIONS. pdf (DIABETIC FOOT CARE INSTRUCTIONS. pdf) 09/25/2024 Other hammer toe(s) (acquired), right foot (ICD-10 - M20.41) Patient Educated with: DIABETIC FOOT CARE INSTRUCTIONS. pdf (DIABETIC FOOT CARE INSTRUCTIONS. pdf) 11/21/2023 Neuropathic ulcer of right heel, limited to breakdown of skin (ICD-10 - L97.411) Response to treatment,Impro vement 11/21/2023 Nummular eczematous dermatitis (ICD-10 - L30.0) 09/25/2024 Other hammer toe(s) (acquired), left foot (ICD-10 - M20.42) 01/24/2024 Other hammer toe(s) (acquired), left foot (ICD-10 - M20.42) Plan Of Treatment Pending Test Test Name Order Date 08143-EIOLXUG NAIL, 6 OR MORE 12/08/2020 79290-TMYPPXB NAIL, 6 OR MORE 02/09/2021 57650-LJTNIYT NAIL, 6 OR MORE 05/16/2021 56658-RSGOGVN NAIL, 6 OR MORE 07/25/2021 30141-JSSGDNQ NAIL, 6 OR MORE 11/09/2021 48364-HUUIBIQ NAIL, 6 OR MORE 01/23/2022 71307-ZPLPXOY NAIL, 6 OR MORE 05/03/2022 61485-MVVDDDZ NAIL, 6 OR MORE 07/06/2022 04201-JLWCIQK NAIL, 6 OR MORE 09/14/2022 60524-AHLKJCK NAIL, 6 OR MORE 11/20/2022 17460-HXEGZNM NAIL, 6 OR MORE 02/12/2023 50655-FRDSHUA NAIL, 6 OR MORE 04/26/2023 54544-MFGRAVO NAIL, 6 OR MORE 07/04/2023 07980-YHNHFLI NAIL, 6 OR MORE 09/12/2023 71271-FCVNSZM NAIL, 6 OR MORE 11/21/2023 01730-EFHBQQL NAIL, 6 OR MORE 01/24/2024 67995-QIOYMFG NAIL, 6 OR MORE 04/03/2024 32857-TRLPSYV NAIL, 6 OR MORE 06/30/2024 76813-GIMHHGD NAIL, 6 OR MORE 09/25/2024 85823-Mecf Destruction, 1-14 02/09/2021 70960-Tupm Destruction, 1-14 12/08/2020 40021- Debride <25 sq cm 11/07/2023 74893-NBLZ SKIN LESIONS, OVER 4 09/25/19 25 47159-FXZV SKIN LESIONS, OVER 4 06/30/20 24 06108-DRDK SKIN LESIONS, OVER 4 07/25/20 21 78996-OCCP SKIN LESIONS, OVER 4 05/16/20 21 49008-KMAC SKIN LESIONS, OVER 4 09/14/19 23 06837-SVQD SKIN LESIONS, OVER 4 07/06/20 22 46732-VQPX SKIN LESIONS, OVER 4 01/24/20 22 54070-OGXF SKIN LESIONS, OVER 4 05/03/20 22 01451-SCAJ SKIN LESIONS, OVER 4 11/10/19 22 92055-YPFG SKIN LESIONS, OVER 4 04/03/20 24 54089-UIZF SKIN LESIONS, OVER 4 01/24/20 24 87697-QTLZ SKIN LESIONS, OVER 4 11/21/19 24 06235-QLGH SKIN LESIONS, OVER 4 09/12/19 24 06059-JPAE SKIN LESIONS, OVER 4 07/04/20 23 73910-MCXB SKIN LESIONS, OVER 4 04/26/20 23 43977-VTXV SKIN LESIONS, OVER 4 02/13/20 23 94993-QZFQ SKIN LESIONS, OVER 4 11/21/19 Next Appt Details Provider Name:Iftikhar Howard , 12/18/2024 08:30:00 AM, [address] [facility], [address], [place], [address], Insurance Providers Payer Name Payer Address Payer Phone Subscriber Number Group Number Insured Name Patient Relationship to Insured Coverage Start Date Coverage End Date Medicare National [employer] [address] [place] [address] [id number] Margi Ocasio Self - patient is the insured Medical (General) History Medical History History ICD Code Arthritis Back,Hip,and Knee pain CAD ( Coronary Artery Disease) CAD (Cholesterol) Cataracts Depression Diabetic Headaches Hepatitis A Psoriasis Psychiatric disorder Reflux Sciatica chronic sinusitis thyroid Chicken pox Surgical History Surgery Date(Month/Year) gastric bypass 2018 left shoulder knee surgery, left knee surgery, right carpal tunnel surgery
--- OUTSIDE RECORDS SUMMARY | 2024-10-18 12:34 | XMS_ITS | Clinical Summary ---
Author Organization [facility] Address [address] [place] [address] Phone Care Team Providers Care Orthopedic Mechanic Name Role Phone Faustina Aguila MD Primary Care Provider [phone] Allergies Active Allergy Reactions Criticality Noted Date Comments Gabapentin 10/18/2017 Metformin 08/02/2023 Medication induced Hepatitis A Medications sucralfate (CARAFATE) 1 gram tabletIndications:G astroesophageal reflux disease without esophagitis Take 1 tablet (1 g total) by mouth 3 (three) times a day. Take 1 hour before meals and at bedtime 270 each 07/28/20 24 025 Active pantoprazole (PROTONIX) 40 mg EC tabletIndications:G astroesophageal reflux disease without esophagitis Take 1 tablet (40 mg total) by mouth 2 (two) times a day. Do not crush, chew, or split. 60 each 5 08/28/19 25 025 Active levothyroxine (SYNTHROID, LEVOTHROID) 200 mcg tablet [...] by mouth 1 (one) time each day. 02/22/20 18 Active esomeprazole magnesium (NEXIUM ORAL) Take 40 [...] 40 mg Active dicyclomine (BENTYL) 20 mg tabletIndications:I rritable bowel syndrome, unspecified type Take 1 tablet (20 mg total) by mouth 4 (four) times a day. 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; B-cell, [facility] Oncology GREGORIA on CPAP 04/10/2018 Vitamin D deficiency 02/21/2018 Encounters Date Type Department Care Team Description 08/28/2024 Telephone Gastroenterology - [address] [facility] [address] [place] [phone] Lizbeth Kennedy [place] 07/25/2024 3:55 PM EST - 07/25/2024 11:59 PM EST Hospital Encounter [facility] MRI [address] [place] [phone] Pain Discharge Disposition: Home or Self Care from Last 3 Months Surgical History Surgery Date Site/Laterality Comments BARIATRIC SURGERY 08/2017 PROCEDURE: [place] LAPS GSTRC RSTRICTIV PX LONGITUDINAL GASTRECTOMY; COMMENT: [...] disorder) Hypothyroidism DX:Hypothyroidis m Non Hodgkin's lymphoma ([facility]) 04/10/2018 DX:Non Hodgkin's lymphoma (HCC); COMMENT: 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; B-cell, [facility] Oncology Vitamin D deficiency 02/21/2018 DX:Vitamin D deficiency Type 2 diabetes mellitus wit hout complication ([facility]) DX:Type 2 diabetes mellitus without complication ([facility]); COMMENT: 08/2017 Insulin pump DDD (degenerative disc disea se), cervical 04/10/2018 DX:DDD (degenerative disc di sease), cervical; COMMENT: Spinal stenosis History of bariatric surgery 04/10/2018 DX: History of bariatric surgery; COMMENT: 08/2017 sleeve GREGORIA on CPAP 04/10/2018 DX:GREGORIA on CPAP Bipolar affective disorder ([facility]) 04/10/2018 DX:Bipolar affective disorder ([facility]) Morbid obesity with BMI of 5 0.0-59.9, adult ([facility]) 02/21/2018 DX:Morbid obesity with BMI o f 50.0-59.9, adult ([facility]) Hyperlipidemia 04/10/2018 DX:Hyperlipidemi a Migraine headache 04/10/2018 DX:Migraine he adache Allergies DX:Allergies Anxiety DX:Anxiety Back pain DX:Back pain Cataracts, bilateral DX:Cataract s, bilateral Diabetes mellitus, type 2 (CMS/HCC) DX:Diabetes mellitus, type 2 (HCC) Eating disorder DX:Eating disord er GERD (gastroesophageal [...] drink = 0.6 oz pur e alcohol) Comments Unknown Sex and Gender Information Value Date Recorded Sex Assigned at Not on file Legal Sex Female 3:07 PM EST Gender Identity Not on file Sexual Orientation Lesbian or Romero 06/26/2024 4: 55 PM EST Obstetrics History Last Filed Vital Signs Vital [...] PM EDT Office Visit Gastroenterology - [address] [phone] Breonna Hickey MD [address] [address] Health Maintenance Due Date Last Done Comments [...] Zoster Vaccines Completed 08/06/2021, 05/31/2021 Pneumococcal Vaccine: 50+ Years Completed 07/30/2023, 03/26/2020 Pneumococcal Vaccine: Pediatrics (0 to 5 Years) [...] patient's age to complete this topic Meningococcal B Vacine Aged Out No lo nger eligible based on patient's age to complete [...] Signed Date: 07/28/2024 10:28 ET Workstation ID: [id number] Transcribed By: Self Edit Transcribed Date: 07/27/2024 [...] Signed Date: 07/28/2024 10:28 ET Workstation ID: [id number] Transcribed By: Self Edit Transcribed Date: 07/27/2024 22:43 ET us Juan Pierre DO IMG MRI PROCEDURES Final Resu lt from Last 3 Months Insurance MEDICARE Care Teams Orthopedic Mechanic Relationship Specialty Start Date End Date Faustina Aguila MD [address] [place] [id number] PCP - General Internal Medicine 09/10/24
--- OUTSIDE RECORDS SUMMARY | 2024-10-18 12:34 | XMS_ITS | Clinical Summary ---
Author Organization [facility] Address [address] [place] [address] Care Team Providers Care Watch Crystal Cutter Name Role Phone Faustina Aguila MD Primary Care Provider [phone] Allergies Active Allergy Reactions Criticality Noted Date [...] age to complete this topic Care Teams Watch Crystal Cutter Relationship Specialty Start Date End Date Faustina Aguila MD [address] [place] [address] PCP - General Internal Medicine 03/16/21
[2024-10-18 12:43] VITALS: BP 121/64; PULSE 97; RESP 18; TEMP 36.8; O2SAT 94
== END 2024-10-18 12:44 | disposition home or self-care (01) ==
PROVIDERS: Emergency Provider Emergency Medicine; PCP Nurse Practitioner
DX: B34.9 Viral infection, unspecified (principal); R53.83 Other fatigue; Z03.818 Encounter for observation for suspected exposure to other biological agents ruled out
CPT/HCPCS: 0241U; 99282; 99283